=== PATIENT | female | born 1975 | race Caucasian/White ===

== ENCOUNTER 2018-07-11 08:15 | Outpatient (RCR) | payer OTHER, SELFPAY ==
--- NOTE | 2018-05-17 09:37 | PT.OIE ---
Current Diagnoses Pain in right knee (05/17/18) Low back pain (05/17/18) Abnormal posture (05/17/18) Weakness (05/17/18) Past Surgical History History of third molar tooth extraction Status post arthroscopy Status post arthroscopy Status post delivery Status post tonsillectomy and adenoidectomy Provider Visit Care Team Role Provider Type Bill White MD Attending Provider Physician Family Provider Primary Care Provider Specialty: Family Practice Address: [address] [place] [address], [facility] Email: [email or web address] Physical Therapy Initial Evaluation PT-OP-A Visit Information Start: 05/15/18 08:14 Freq: Status: Active Protocol: Document 05/15/18 08:15 SAK (Rec: 05/17/18 09:36 SAK [id number]) Out-Patient Physical Therapy Visit Information Visit Information Visit Type Initial Evaluation Visit Start Time 08:15 Visit Stop Time 09:00 Total Visit Minutes 45 Visit Number 1 Number of FIRST AID NURSE Visits 0 Evaluation Information Evaluation Date 05/15/18 PT-OP-B Current Condition Start: 05/15/18 08:14 Freq: Status: Active Protocol: Document 05/15/18 08:15 SAK (Rec: 05/17/18 09:36 SAK [id number]) Current Condition History of Current Condition Onset Date 3+ years Current Complaints function-limiting LBP, right knee pain History of Current Condition Patient reports worsening, persisten, function-limiting LBP melissa at 3-8/10. This is complicated by prior knee surgeries and frequent right knee pain which alters how she walks. Has had prior PT, not certain if it was helpful, not fully compliant with HEP. Does go to yoga and walk. Prior Treatments and Tests left ACL repair, left arthroscopy, right knee meniscectomy. Treatment Goals Patient/Caregiver Goals Reduce pain and be able to resume usual activities Prior Functional Status Baseline Function- ADL's Independent Baseline Function- Mobility Independent Baseline Function- Gait no limp, no assistive device Current Functional Impairments (Reported) Functional Limitations- ADL's Unable to take walks without pain, increased pain with ADL' s. Functional Limitations- Mobility/Gait antalgic Functional Limitations- Recreation/ unable to take long walks or Hobbies hike PT-OP-C Subjective Start: 05/15/18 08:14 Freq: Status: Active Protocol: Document 05/15/18 08:15 [facility] (Rec: 05/17/18 09:36 [facility] [id number]) Patient Questionnaires Oswestry Low Back Index Oswestry Impairment 1 to 19% Impaired (Score 1-19) OP-PT Pain Assessment Pain Assessment Grid Paper Pain Assessment Grid Completed Yes Location Right Knee Intensity 9 Scale Used Numeric (1 - 10) Description Acute Burning Pinching Pressure Spasm Tightness With Movement Bilateral Back Intensity 8 Scale Used Numeric (1 - 10) Description Aching Burning Pinching Spasm Tightness With Movement Frequency Frequent Pain Aggravating Factors ADL's Standing Walking Lifting Pain Alleviating Factors None PT-OP-F Manual Assessment Start: 05/15/18 08:14 Freq: Status: Active Protocol: Document 05/15/18 08:15 [facility] (Rec: 05/17/18 09:36 [facility] [id number]) Manual Assessments Other Manual Assessments Other Manual Assessments Palpable tightness right piriformis, bilateral lumbar paraspinals PT-OP-G Mobility & Gait Start: 05/15/18 08:14 Freq: Status: Active Protocol: Document 05/15/18 08:15 [facility] (Rec: 05/17/18 09:36 [facility] [id number]) OP Gait Assessment Gait Gait Assistance Required: Independent Assistive Devices Assistive Device None Gait Deviations General Gait Pattern Antalgic Factors Limiting Gait Function Factors Limiting Gait Function Decreased Strength Pain Stair Climbing Evaluation Evaluation Level of Assist On Stairs Independent Devices Stair Climbing Assistive Devices None Technique/Endurance Stair Climbing Direction Ascend and Descend Stair Climbing Technique Step Over Step PT-OP-J Posture/Palpation/Skin Start: 05/15/18 08:14 Freq: Status: Active Protocol: Document 05/15/18 08:15 [facility] (Rec: 05/17/18 09:36 [facility] [id number]) Posture Evaluation Position Standing Head/C-Spine Posture Forward Head T-Spine Posture Flattened L-Spine Posture Increased Lordosis Shifted Left Shoulder Posture (R) Rounded Arm Posture (L) Neutral (R) Neutral Pelvis Posture Anteriorly Tilted Hip Posture (R) Externally Rotated Knee Posture (R) Excess Flexion Foot Arch (L) High Arch (R) High Arch PT-OP-K Range of Motion Start: 05/15/18 08:14 Freq: Status: Active Protocol: Document 05/15/18 08:15 [facility] (Rec: 05/17/18 09:36 [facility] [id number]) Lumbar Spine Range of Motion Lumbar Spine Active Testing Position standing Flexion 10 Extension 30 Rotation Left 45 Rotation Right 45 Lateral Flexion Left 50 Lateral Flexion Right 40 Comments Lack of flexion in lumbar spine, mostly hip hinge and thoracic flexion Hip Goniometric Range of Motion Hip Measured in Degrees Right Testing Position Supine Flexion w/Knee Flexed 140 Straight Leg Raise 80 Extension 25 Abduction 45 Internal Rotation 30 External Rotation 75 Left Testing Position Supine Flexion w/Knee Flexed 140 Straight Leg Raise 85 Extension 10 Abduction 45 Internal Rotation 30 External Rotation 80 Hip ROM Limitations Hip ROM Limitations Pain Knee Goniometric Range of Motion Knee Measured in Degrees Left Knee ROM WFL Yes Right Knee ROM WFL Yes PT-OP-M Strength Start: 05/15/18 08:14 Freq: Status: Active Protocol: Document 05/15/18 08:15 [facility] (Rec: 05/17/18 09:36 [facility] [id number]) Hip Strength Hip Manual Muscle Testing Right Flexion (L2) 4- Good- Extension (S1) 4- Good- Abduction 4- Good- Adduction 4- Good- External Rotation 4- Good- Internal Rotation 4 Good Comments Poor core stabiization noted with testing Left Flexion (L2) 3+ Fair+ Extension (S1) 4- Good- Abduction 4- Good- Adduction 4- Good- External Rotation 4- Good- Internal Rotation 4 Good Comments Poor core stabiliztion noted with testing Knee Strength Knee Manual Muscle Testing Right Flexion (S2) 4 Good Extension (L3) 4 Good Reason Not Measured Pain Left Flexion (S2) 5 Normal Extension (L3) 5 Normal Ankle/Foot Strength Ankle and Foot Manual Muscle Testing Right Dorsiflexion (L4) 5 Normal Inversion 4 Good Left Dorsiflexion (L4) 5 Normal Plantarflexion (S1) 4 Good PT-OP-Q Treatments Start: 05/15/18 08:14 Freq: Status: Active Protocol: Document 05/15/18 08:15 [facility] (Rec: 05/17/18 09:36 [facility] [id number]) Self-Care/Home Management Treatment Education Patient Education Home Exercise Program Other Education Need for core stabilization with all activities, monitor positioning and usual movments for alignment and core stabiization. PT-OP-T Assessment and Plan Start: 05/15/18 08:14 Freq: Status: Active Protocol: Document 05/15/18 08:15 [facility] (Rec: 05/17/18 09:36 [facility] [id number]) Physical Therapy Assessment Impairments Impairments Activity Tolerance Gait Pain Posture ROM Strength Goals Four Impairment Posture Short Term Goal (STG) Patient to demonstrate good understanding of neutral posture and be able to perform postural correction with minimal cues statically and dynamically with function STG Duration 6 wks Granulizing Machine Operator Goal (LTG) Patient will demonstrate consistently neutral spinal alignment/posture without cues for improvement of pain and long-term function LTG Duration 3 months Three Impairment strength Short Term Goal (STG) Patient able to demonstrate consistent core stabilization with all activities including exercises and daily activities with minimal cues. Increase LE strength in areas showing deficits by 1/2 grade. STG Duration 6 wks Retirement Goal (LTG) Patient to demonstrate consistent appropriate core stabilization without cues, LE strength to improve to 5/5 LTG Duration 3 months Two Impairment ROM Retirement Goal (LTG) Improve lumbar spine mobility to WNL LTG Duration 3 months One Impairment Activity tolerance: Oswestry score 26% Short Term Goal (STG) Decrease Oswestry score to no greater than 13% STG Duration 6 wks Granulizing Machine Operator Goal (LTG) Decrease Oswestry score to no greater than 5% LTG Duration 3 months Assessment Summary Assessment Patient presents with function -limiting LBP, complicated by multiple knee surgeries and frequent right knee pain. She would benefit from PT for postural correction, core stabilization, strengthening, ROM. Physical Therapy Plan Frequency and Duration Frequency of Treatment 2x/Week Duration of Treatment 3 months Plan of Care Start Date 05/15/18 Plan of Care End Date 08/15/18 Therapeutic Interventions Therapeutic Interventions Aquatic Therapy Home Exercise Program Manual Therapy Neuromuscular Re-education Patient/Caregiver Education Self-Care/Home Management Therapeutic Activities Therapeutic Exercises Modalities Cold Pack/Ice Massage Electric Stimulation Hot Packs Ultrasound Next Visit Focus/Plan Next Note Type Treatment Note Next Visit Plan Progression of therapeutic exercises, postural education, core stabilization as tolerated.
--- NOTE | 2018-05-17 09:38 | PT.OPPOC ---
Current Diagnoses Pain in right knee (05/17/18) Low back pain (05/17/18) Abnormal posture (05/17/18) Weakness (05/17/18) Provider Visit Care Team Role Provider Type Bill White MD Attending Provider Physician Family Provider Primary Care Provider Specialty: Family Practice Address: [address] [place] [address], [id number] Email: [email or web address] Plan Of Care PT-OP-T Assessment and Plan Start: 05/15/18 08:14 Freq: Status: Active Protocol: Document 05/15/18 08:15 SAK (Rec: 05/17/18 09:36 SAK [id number]) Physical Therapy Assessment Impairments Impairments Activity Tolerance Gait Pain Posture ROM Strength Goals Four Impairment Posture Short Term Goal (STG) Patient to demonstrate good understanding of neutral posture and be able to perform postural correction with minimal cues statically and dynamically with function STG Duration 6 wks Roller Stitcher Goal (LTG) Patient will demonstrate consistently neutral spinal alignment/posture without cues for improvement of pain and long-term function LTG Duration 3 months Three Impairment strength Short Term Goal (STG) Patient able to demonstrate consistent core stabilization with all activities including exercises and daily activities with minimal cues. Increase LE strength in areas showing deficits by 1/2 grade. STG Duration 6 wks Roller Stitcher Goal (LTG) Patient to demonstrate consistent appropriate core stabilization without cues, LE strength to improve to 5/5 LTG Duration 3 months Two Impairment ROM Residential Goal (LTG) Improve lumbar spine mobility to WNL LTG Duration 3 months One Impairment Activity tolerance: Oswestry score 26% Short Term Goal (STG) Decrease Oswestry score to no greater than 13% STG Duration 6 wks Roller Stitcher Goal (LTG) Decrease Oswestry score to no greater than 5% LTG Duration 3 months Assessment Summary Assessment Patient presents with function -limiting LBP, complicated by multiple knee surgeries and frequent right knee pain. She would benefit from PT for postural correction, core stabilization, strengthening, ROM. Physical Therapy Plan Frequency and Duration Frequency of Treatment 2x/Week Duration of Treatment 3 months Plan of Care Start Date 05/15/18 Plan of Care End Date 08/15/18 Therapeutic Interventions Therapeutic Interventions Aquatic Therapy Home Exercise Program Manual Therapy Neuromuscular Re-education Patient/Caregiver Education Self-Care/Home Management Therapeutic Activities Therapeutic Exercises Modalities Cold Pack/Ice Massage Electric Stimulation Hot Packs Ultrasound Next Visit Focus/Plan Next Note Type Treatment Note Next Visit Plan Progression of therapeutic exercises, postural education, core stabilization as tolerated. Plan of Care Dates Plan of Care Start Date 05/15/18 Plan of Care End Date 08/15/18 Please Sign and Return: I have reviewed this Plan of Care and certify that the skilled therapy services above are required to meet the patient?s needs. Physician Signature Date Printed Name and Credentials Clinical Instructor Signature Printed Name and Credentials
--- NOTE | 2018-05-17 09:50 | PT.OTN ---
Current Diagnoses Pain in right knee (05/17/18) Low back pain (05/17/18) Abnormal posture (05/17/18) Weakness (05/17/18) Physical Therapy Treatment Note PT-OP-A Visit Information Start: 05/15/18 08:14 Freq: Status: Active Protocol: Document 05/17/18 08:15 SAK (Rec: 05/17/18 09:50 [facility] [id number]) Out-Patient Physical Therapy Visit Information Visit Information Visit Type Treatment Note Visit Start Time 08:15 Visit Stop Time 09:08 Total Visit Minutes 53 Visit Number 2 Number of CAR MOVER Visits 2 Evaluation Information Evaluation Date 05/15/18 PT-OP-B Current Condition Start: 05/15/18 08:14 Freq: Status: Active Protocol: Document 05/15/18 08:15 SAK (Rec: 05/17/18 09:36 [facility] [id number]) Current Condition History of Current Condition Onset Date 3+ years Current Complaints function-limiting LBP, right knee pain History of Current Condition Patient reports worsening, persisten, function-limiting LBP melissa at 3-06/14. This is complicated by prior knee surgeries and frequent right knee pain which alters how she walks. Has had prior PT, not certain if it was helpful, not fully compliant with HEP. Does go to yoga and walk. Prior Treatments and Tests left ACL repair, left arthroscopy, right knee meniscectomy. Treatment Goals Patient/Caregiver Goals Reduce pain and be able to resume usual activities Prior Functional Status Baseline Function- ADL's Independent Baseline Function- Mobility Independent Baseline Function- Gait no limp, no assistive device Current Functional Impairments (Reported) Functional Limitations- ADL's Unable to take walks without pain, increased pain with ADL' s. Functional Limitations- Mobility/Gait antalgic Functional Limitations- Recreation/ unable to take long walks or Hobbies hike PT-OP-C Subjective Start: 05/15/18 08:14 Freq: Status: Active Protocol: Document 05/17/18 08:15 SAK (Rec: 05/17/18 09:50 [facility] [id number]) OP-PT Subjective Patient Comments Patient Comments Reports was doing lunge in yoga yesterday and now having mod to severe right knee pain medially with cramping in inner thigh muscles, unable to fully straighten knee PT-OP-F Manual Assessment Start: 05/15/18 08:14 Freq: Status: Active Protocol: Document 05/15/18 08:15 SAK (Rec: 05/17/18 09:36 [facility] [id number]) Manual Assessments Other Manual Assessments Other Manual Assessments Palpable tightness right piriformis, bilateral lumbar paraspinals PT-OP-G Mobility & Gait Start: 05/15/18 08:14 Freq: Status: Active Protocol: Document 05/15/18 08:15 SAK (Rec: 05/17/18 09:36 [facility] [id number]) OP Gait Assessment Gait Gait Assistance Required: Independent Assistive Devices Assistive Device None Gait Deviations General Gait Pattern Antalgic Factors Limiting Gait Function Factors Limiting Gait Function Decreased Strength Pain Stair Climbing Evaluation Evaluation Level of Assist On Stairs Independent Devices Stair Climbing Assistive Devices None Technique/Endurance Stair Climbing Direction Ascend and Descend Stair Climbing Technique Step Over Step PT-OP-J Posture/Palpation/Skin Start: 05/15/18 08:14 Freq: Status: Active Protocol: Document 05/15/18 08:15 [facility] (Rec: 05/17/18 09:36 [facility] [id number]) Posture Evaluation Position Standing Head/C-Spine Posture Forward Head T-Spine Posture Flattened L-Spine Posture Increased Lordosis Shifted Left Shoulder Posture (R) Rounded Arm Posture (L) Neutral (R) Neutral Pelvis Posture Anteriorly Tilted Hip Posture (R) Externally Rotated Knee Posture (R) Excess Flexion Foot Arch (L) High Arch (R) High Arch PT-OP-K Range of Motion Start: 05/15/18 08:14 Freq: Status: Active Protocol: Document 05/15/18 08:15 [facility] (Rec: 05/17/18 09:36 [facility] [id number]) Lumbar Spine Range of Motion Lumbar Spine Active Testing Position standing Flexion 10 Extension 30 Rotation Left 45 Rotation Right 45 Lateral Flexion Left 50 Lateral Flexion Right 40 Comments Lack of flexion in lumbar spine, mostly hip hinge and thoracic flexion Hip Goniometric Range of Motion Hip Measured in Degrees Right Testing Position Supine Flexion w/Knee Flexed 140 Straight Leg Raise 80 Extension 25 Abduction 45 Internal Rotation 30 External Rotation 75 Left Testing Position Supine Flexion w/Knee Flexed 140 Straight Leg Raise 85 Extension 10 Abduction 45 Internal Rotation 30 External Rotation 80 Hip ROM Limitations Hip ROM Limitations Pain Knee Goniometric Range of Motion Knee Measured in Degrees Left Knee ROM WFL Yes Right Knee ROM WFL Yes PT-OP-M Strength Start: 05/15/18 08:14 Freq: Status: Active Protocol: Document 05/15/18 08:15 SAK (Rec: 05/17/18 09:36 [facility] [id number]) Hip Strength Hip Manual Muscle Testing Right Flexion (L2) 4- Good- Extension (S1) 4- Good- Abduction 4- Good- Adduction 4- Good- External Rotation 4- Good- Internal Rotation 4 Good Comments Poor core stabiization noted with testing Left Flexion (L2) 3+ Fair+ Extension (S1) 4- Good- Abduction 4- Good- Adduction 4- Good- External Rotation 4- Good- Internal Rotation 4 Good Comments Poor core stabiliztion noted with testing Knee Strength Knee Manual Muscle Testing Right Flexion (S2) 4 Good Extension (L3) 4 Good Reason Not Measured Pain Left Flexion (S2) 5 Normal Extension (L3) 5 Normal Ankle/Foot Strength Ankle and Foot Manual Muscle Testing Right Dorsiflexion (L4) 5 Normal Inversion 4 Good Left Dorsiflexion (L4) 5 Normal Plantarflexion (S1) 4 Good PT-OP-Q Treatments Start: 05/15/18 08:14 Freq: Status: Active Protocol: Document 05/17/18 08:15 SAK (Rec: 05/17/18 09:50 [facility] [id number]) Cardio Equipment Recumbent Stepper (Sci-Fit) Duration (Minutes) 7 Resistance 2 Other emphasis on neutral alignment, ex in pain-free ROM and intensity Gym Equipment Shuttle Balance 1 Details bal fwd/bck EO and EC, side to side EO and EC Reps/Duration 4 min Therapeutic Exercises Supine Exercises 3 Supine Exercise Name TA with pelvic tilt Reps/Minutes 10x 2 Supine Exercise Name TA with bent leg march Side bilateral Reps/Minutes 10x 1 Supine Exercise Name TA with hip roll outs Side bilateral Reps/Minutes 10x Sidelying Exercises 2 Sidelying Exercise Name clamshell 1 Sidelying Exercise Name TA with hip ab Side bilateral Reps/Minutes 10x Standing Exercises 2 Standing Exercise Name HC stretch Self-Care/Home Management Treatment Education Patient Education Home Exercise Program Other Education use of heat, ice PT-OP-R Modalities Start: 05/15/18 08:14 Freq: Status: Active Protocol: Document 05/17/18 08:15 SAK (Rec: 05/17/18 09:50 [facility] [id number]) Electric Stimulation Electric Stimulation Interferential Current (IFC) Body Location right knee Duration (Minutes) 15 Target/Sweep Sweep Patient Position Hooklying Combined With Heat/Cold Cold Pack Hot Pack/Cold Pack Treatment Hot Pack Location right adductor region Comments during ultrasound and e-stim to right knee Ultrasound Therapy Treatment Right Medial Knee Treatment Duration (minutes) 8 Patient Position Hooklying Mode Setting Continuous Intensity Setting (w/cm2) 1.2 PT-OP-T Assessment and Plan Start: 05/15/18 08:14 Freq: Status: Active Protocol: Document 05/17/18 08:15 SAK (Rec: 05/17/18 09:50 [facility] [id number]) Physical Therapy Assessment Impairments Impairments Activity Tolerance Gait Pain Posture ROM Strength Goals Four Impairment Posture Short Term Goal (STG) Patient to demonstrate good understanding of neutral posture and be able to perform postural correction with minimal cues statically and dynamically with function STG Duration 6 wks Grader Patrol Goal (LTG) Patient will demonstrate consistently neutral spinal alignment/posture without cues for improvement of pain and long-term function LTG Duration 3 months Three Impairment strength Short Term Goal (STG) Patient able to demonstrate consistent core stabilization with all activities including exercises and daily activities with minimal cues. Increase LE strength in areas showing deficits by 1/2 grade. STG Duration 6 wks Grader Patrol Goal (LTG) Patient to demonstrate consistent appropriate core stabilization without cues, LE strength to improve to 5/5 LTG Duration 3 months Two Impairment ROM Grader Patrol Goal (LTG) Improve lumbar spine mobility to WNL LTG Duration 3 months One Impairment Activity tolerance: Oswestry score 26% Short Term Goal (STG) Decrease Oswestry score to no greater than 13% STG Duration 6 wks Grader Patrol Goal (LTG) Decrease Oswestry score to no greater than 5% LTG Duration 3 months Assessment Summary Assessment Patient exacerbation of right knee pain with lunge at yoga altered treatment plan this date as the pain causes increased limp, increase in back pain as well. Needs moderate cues for core stabilization with ther ex. Demonstrated good understanding of appropriate use if ice and heat at home. Physical Therapy Plan Frequency and Duration Frequency of Treatment 2x/Week Duration of Treatment 3 months Plan of Care Start Date 05/15/18 Plan of Care End Date 08/15/18 Therapeutic Interventions Therapeutic Interventions Aquatic Therapy Home Exercise Program Manual Therapy Neuromuscular Re-education Patient/Caregiver Education Self-Care/Home Management Therapeutic Activities Therapeutic Exercises Modalities Cold Pack/Ice Massage Electric Stimulation Hot Packs Ultrasound Next Visit Focus/Plan Next Note Type Treatment Note Next Visit Plan Progression of therapeutic exercises, postural education, core stabilization as tolerated.
--- NOTE | 2018-05-21 09:32 | PT.OTN ---
Current Diagnoses Low back pain (05/21/18) Physical Therapy Treatment Note PT-OP-A Visit Information Start: 05/15/18 08:14 Freq: Status: Active Protocol: Document 05/21/18 07:30 AMB (Rec: 05/21/18 07:37 AMB [id number]) Out-Patient Physical Therapy Visit Information Visit Information Visit Type Treatment Note Visit Start Time 07:30 Visit Stop Time 08:15 Total Visit Minutes 53 Visit Number 2 Number of SPORTS THERAPIST Visits 0 Evaluation Information Evaluation Date 05/15/18 PT-OP-B Current Condition Start: 05/15/18 08:14 Freq: Status: Active Protocol: Document 05/15/18 08:15 SAK (Rec: 05/17/18 09:36 SAK [id number]) Current Condition History of Current Condition Onset Date 3+ years Current Complaints function-limiting LBP, right knee pain History of Current Condition Patient reports worsening, persisten, function-limiting LBP melissa at 3-8/10. This is complicated by prior knee surgeries and frequent right knee pain which alters how she walks. Has had prior PT, not certain if it was helpful, not fully compliant with HEP. Does go to yoga and walk. Prior Treatments and Tests left ACL repair, left arthroscopy, right knee meniscectomy. Treatment Goals Patient/Caregiver Goals Reduce pain and be able to resume usual activities Prior Functional Status Baseline Function- ADL's Independent Baseline Function- Mobility Independent Baseline Function- Gait no limp, no assistive device Current Functional Impairments (Reported) Functional Limitations- ADL's Unable to take walks without pain, increased pain with ADL' s. Functional Limitations- Mobility/Gait antalgic Functional Limitations- Recreation/ unable to take long walks or Hobbies hike PT-OP-C Subjective Start: 05/15/18 08:14 Freq: Status: Active Protocol: Document 05/21/18 07:30 AMB (Rec: 05/21/18 07:37 AMB [id number]) OP-PT Subjective Patient Comments Patient Comments R knee pain is much better today, stiff in the back in the mornings. PT-OP-F Manual Assessment Start: 05/15/18 08:14 Freq: Status: Active Protocol: Document 05/15/18 08:15 SAK (Rec: 05/17/18 09:36 SAK [id number]) Manual Assessments Other Manual Assessments Other Manual Assessments Palpable tightness right piriformis, bilateral lumbar paraspinals PT-OP-G Mobility & Gait Start: 05/15/18 08:14 Freq: Status: Active Protocol: Document 05/15/18 08:15 [facility] (Rec: 05/17/18 09:36 [facility] [id number]) OP Gait Assessment Gait Gait Assistance Required: Independent Assistive Devices Assistive Device None Gait Deviations General Gait Pattern Antalgic Factors Limiting Gait Function Factors Limiting Gait Function Decreased Strength Pain Stair Climbing Evaluation Evaluation Level of Assist On Stairs Independent Devices Stair Climbing Assistive Devices None Technique/Endurance Stair Climbing Direction Ascend and Descend Stair Climbing Technique Step Over Step PT-OP-J Posture/Palpation/Skin Start: 05/15/18 08:14 Freq: Status: Active Protocol: Document 05/15/18 08:15 [facility] (Rec: 05/17/18 09:36 [facility] [id number]) Posture Evaluation Position Standing Head/C-Spine Posture Forward Head T-Spine Posture Flattened L-Spine Posture Increased Lordosis Shifted Left Shoulder Posture (R) Rounded Arm Posture (L) Neutral (R) Neutral Pelvis Posture Anteriorly Tilted Hip Posture (R) Externally Rotated Knee Posture (R) Excess Flexion Foot Arch (L) High Arch (R) High Arch PT-OP-K Range of Motion Start: 05/15/18 08:14 Freq: Status: Active Protocol: Document 05/15/18 08:15 [facility] (Rec: 05/17/18 09:36 [facility] [id number]) Lumbar Spine Range of Motion Lumbar Spine Active Testing Position standing Flexion 10 Extension 30 Rotation Left 45 Rotation Right 45 Lateral Flexion Left 50 Lateral Flexion Right 40 Comments Lack of flexion in lumbar spine, mostly hip hinge and thoracic flexion Hip Goniometric Range of Motion Hip Measured in Degrees Right Testing Position Supine Flexion w/Knee Flexed 140 Straight Leg Raise 80 Extension 25 Abduction 45 Internal Rotation 30 External Rotation 75 Left Testing Position Supine Flexion w/Knee Flexed 140 Straight Leg Raise 85 Extension 10 Abduction 45 Internal Rotation 30 External Rotation 80 Hip ROM Limitations Hip ROM Limitations Pain Knee Goniometric Range of Motion Knee Measured in Degrees Left Knee ROM WFL Yes Right Knee ROM WFL Yes PT-OP-M Strength Start: 05/15/18 08:14 Freq: Status: Active Protocol: Document 05/15/18 08:15 [facility] (Rec: 05/17/18 09:36 SAK [id number]) Hip Strength Hip Manual Muscle Testing Right Flexion (L2) 4- Good- Extension (S1) 4- Good- Abduction 4- Good- Adduction 4- Good- External Rotation 4- Good- Internal Rotation 4 Good Comments Poor core stabiization noted with testing Left Flexion (L2) 3+ Fair+ Extension (S1) 4- Good- Abduction 4- Good- Adduction 4- Good- External Rotation 4- Good- Internal Rotation 4 Good Comments Poor core stabiliztion noted with testing Knee Strength Knee Manual Muscle Testing Right Flexion (S2) 4 Good Extension (L3) 4 Good Reason Not Measured Pain Left Flexion (S2) 5 Normal Extension (L3) 5 Normal Ankle/Foot Strength Ankle and Foot Manual Muscle Testing Right Dorsiflexion (L4) 5 Normal Inversion 4 Good Left Dorsiflexion (L4) 5 Normal Plantarflexion (S1) 4 Good PT-OP-Q Treatments Start: 05/15/18 08:14 Freq: Status: Active Protocol: Document 05/21/18 07:30 AMB (Rec: 05/21/18 08:18 AMB [id number]) Cardio Equipment Recumbent Elliptical ([employer]) Duration (Minutes) 5 Resistance 5 Therapeutic Exercises Supine Exercises 5 Supine Exercise Name TA bridge Reps/Minutes 10x 4 Supine Exercise Name piriformis stretch Reps/Minutes 30x2 3 Supine Exercise Name TA with pelvic tilt Reps/Minutes 10x 2 Supine Exercise Name TA with bent leg march Side bilateral Reps/Minutes 10x 1 Supine Exercise Name TA with hip roll outs Side bilateral Reps/Minutes 10x Sidelying Exercises 3 Sidelying Exercise Name kneeling side plank Comments with hip abd 1 Sidelying Exercise Name TA with hip ab Side bilateral Reps/Minutes 10x Standing Exercises 1 Standing Exercise Name resisted sidestepping Comments increased R knee pain Therapeutic Activity Therapeutic Activity 1 Name postural awareness Reps/Minutes 8 min Comments on shuttle balance Red- avoid hyperextension at knee, hyperextension at lumbar PT-OP-R Modalities Start: 05/15/18 08:14 Freq: Status: Active Protocol: Document 05/17/18 08:15 SAK (Rec: 05/17/18 09:50 SAK [id number]) Electric Stimulation Electric Stimulation Interferential Current (IFC) Body Location right knee Duration (Minutes) 15 Target/Sweep Sweep Patient Position Hooklying Combined With Heat/Cold Cold Pack Hot Pack/Cold Pack Treatment Hot Pack Location right adductor region Comments during ultrasound and e-stim to right knee Ultrasound Therapy Treatment Right Medial Knee Treatment Duration (minutes) 8 Patient Position Hooklying Mode Setting Continuous Intensity Setting (w/cm2) 1.2 PT-OP-T Assessment and Plan Start: 05/15/18 08:14 Freq: Status: Active Protocol: Document 05/21/18 07:30 AMB (Rec: 05/21/18 09:32 AMB [id number]) Physical Therapy Assessment Assessment Summary Assessment Pt is doing better today now that her R knee pain has calmed down. Continues to need verbal and physical cues for facilitation of TA and postural control. Physical Therapy Plan Next Visit Focus/Plan Next Note Type Treatment Note Next Visit Plan Progress core/hip stability
--- NOTE | 2018-05-24 17:20 | PT.OTN ---
Current Diagnoses Low back pain (05/24/18) Physical Therapy Treatment Note PT-OP-A Visit Information Start: 05/15/18 08:14 Freq: Status: Active Protocol: Document 05/24/18 07:30 AMB (Rec: 05/24/18 07:38 AMB [id number]) Out-Patient Physical Therapy Visit Information Visit Information Visit Type Treatment Note Visit Start Time 07:30 Visit Stop Time 08:15 Total Visit Minutes 53 Visit Number 4 Number of PROFESSOR OF ECONOMICS Visits 0 Evaluation Information Evaluation Date 05/15/18 PT-OP-B Current Condition Start: 05/15/18 08:14 Freq: Status: Active Protocol: Document 05/15/18 08:15 SAK (Rec: 05/17/18 09:36 SAK [id number]) Current Condition History of Current Condition Onset Date 3+ years Current Complaints function-limiting LBP, right knee pain History of Current Condition Patient reports worsening, persisten, function-limiting LBP melissa at 3-8/10. This is complicated by prior knee surgeries and frequent right knee pain which alters how she walks. Has had prior PT, not certain if it was helpful, not fully compliant with HEP. Does go to yoga and walk. Prior Treatments and Tests left ACL repair, left arthroscopy, right knee meniscectomy. Treatment Goals Patient/Caregiver Goals Reduce pain and be able to resume usual activities Prior Functional Status Baseline Function- ADL's Independent Baseline Function- Mobility Independent Baseline Function- Gait no limp, no assistive device Current Functional Impairments (Reported) Functional Limitations- ADL's Unable to take walks without pain, increased pain with ADL' s. Functional Limitations- Mobility/Gait antalgic Functional Limitations- Recreation/ unable to take long walks or Hobbies hike PT-OP-C Subjective Start: 05/15/18 08:14 Freq: Status: Active Protocol: Document 05/24/18 07:30 AMB (Rec: 05/24/18 07:38 AMB [id number]) OP-PT Subjective Patient Comments Patient Comments Stiff (difficulty with lumbar flexion) this morning. PT-OP-F Manual Assessment Start: 05/15/18 08:14 Freq: Status: Active Protocol: Document 05/15/18 08:15 SAK (Rec: 05/17/18 09:36 SAK [id number]) Manual Assessments Other Manual Assessments Other Manual Assessments Palpable tightness right piriformis, bilateral lumbar paraspinals PT-OP-G Mobility & Gait Start: 05/15/18 08:14 Freq: Status: Active Protocol: Document 05/15/18 08:15 SAK (Rec: 05/17/18 09:36 [facility] [id number]) OP Gait Assessment Gait Gait Assistance Required: Independent Assistive Devices Assistive Device None Gait Deviations General Gait Pattern Antalgic Factors Limiting Gait Function Factors Limiting Gait Function Decreased Strength Pain Stair Climbing Evaluation Evaluation Level of Assist On Stairs Independent Devices Stair Climbing Assistive Devices None Technique/Endurance Stair Climbing Direction Ascend and Descend Stair Climbing Technique Step Over Step PT-OP-J Posture/Palpation/Skin Start: 05/15/18 08:14 Freq: Status: Active Protocol: Document 05/15/18 08:15 SAK (Rec: 05/17/18 09:36 [facility] [id number]) Posture Evaluation Position Standing Head/C-Spine Posture Forward Head T-Spine Posture Flattened L-Spine Posture Increased Lordosis Shifted Left Shoulder Posture (R) Rounded Arm Posture (L) Neutral (R) Neutral Pelvis Posture Anteriorly Tilted Hip Posture (R) Externally Rotated Knee Posture (R) Excess Flexion Foot Arch (L) High Arch (R) High Arch PT-OP-K Range of Motion Start: 05/15/18 08:14 Freq: Status: Active Protocol: Document 05/15/18 08:15 [facility] (Rec: 05/17/18 09:36 [facility] [id number]) Lumbar Spine Range of Motion Lumbar Spine Active Testing Position standing Flexion 10 Extension 30 Rotation Left 45 Rotation Right 45 Lateral Flexion Left 50 Lateral Flexion Right 40 Comments Lack of flexion in lumbar spine, mostly hip hinge and thoracic flexion Hip Goniometric Range of Motion Hip Measured in Degrees Right Testing Position Supine Flexion w/Knee Flexed 140 Straight Leg Raise 80 Extension 25 Abduction 45 Internal Rotation 30 External Rotation 75 Left Testing Position Supine Flexion w/Knee Flexed 140 Straight Leg Raise 85 Extension 10 Abduction 45 Internal Rotation 30 External Rotation 80 Hip ROM Limitations Hip ROM Limitations Pain Knee Goniometric Range of Motion Knee Measured in Degrees Left Knee ROM WFL Yes Right Knee ROM WFL Yes PT-OP-M Strength Start: 05/15/18 08:14 Freq: Status: Active Protocol: Document 05/15/18 08:15 SAK (Rec: 05/17/18 09:36 [facility] [id number]) Hip Strength Hip Manual Muscle Testing Right Flexion (L2) 4- Good- Extension (S1) 4- Good- Abduction 4- Good- Adduction 4- Good- External Rotation 4- Good- Internal Rotation 4 Good Comments Poor core stabiization noted with testing Left Flexion (L2) 3+ Fair+ Extension (S1) 4- Good- Abduction 4- Good- Adduction 4- Good- External Rotation 4- Good- Internal Rotation 4 Good Comments Poor core stabiliztion noted with testing Knee Strength Knee Manual Muscle Testing Right Flexion (S2) 4 Good Extension (L3) 4 Good Reason Not Measured Pain Left Flexion (S2) 5 Normal Extension (L3) 5 Normal Ankle/Foot Strength Ankle and Foot Manual Muscle Testing Right Dorsiflexion (L4) 5 Normal Inversion 4 Good Left Dorsiflexion (L4) 5 Normal Plantarflexion (S1) 4 Good PT-OP-Q Treatments Start: 05/15/18 08:14 Freq: Status: Active Protocol: Document 05/24/18 07:30 AMB (Rec: 05/24/18 17:19 AMB [id number]) Cardio Equipment Recumbent Elliptical ([employer]) Duration (Minutes) 5 Resistance 5 Therapeutic Exercises Supine Exercises 4 Supine Exercise Name piriformis stretch Reps/Minutes 30x2 3 Supine Exercise Name TA with pelvic tilt Reps/Minutes 10x 2 Supine Exercise Name TA with bent leg march Side bilateral Reps/Minutes 10x Prone Exercises 1 Prone Exercise Name olga lidia pose with SB Reps/Minutes 30x4 Sidelying Exercises 3 Sidelying Exercise Name kneeling side plank Comments with hip abd 2 Sidelying Exercise Name clamshell Reps/Minutes 10 Manual Therapy Treatment Soft Tissue Mobilization 1 Body Location R QL into glut med Body Position Sidelying Comments with QL stretch PT-OP-R Modalities Start: 05/15/18 08:14 Freq: Status: Active Protocol: Document 05/17/18 08:15 SAK (Rec: 05/17/18 09:50 SAK [id number]) Electric Stimulation Electric Stimulation Interferential Current (IFC) Body Location right knee Duration (Minutes) 15 Target/Sweep Sweep Patient Position Hooklying Combined With Heat/Cold Cold Pack Hot Pack/Cold Pack Treatment Hot Pack Location right adductor region Comments during ultrasound and e-stim to right knee Ultrasound Therapy Treatment Right Medial Knee Treatment Duration (minutes) 8 Patient Position Hooklying Mode Setting Continuous Intensity Setting (w/cm2) 1.2 PT-OP-T Assessment and Plan Start: 05/15/18 08:14 Freq: Status: Active Protocol: Document 05/24/18 07:30 AMB (Rec: 05/24/18 17:19 AMB [id number]) Physical Therapy Assessment Goals Four Impairment Posture Short Term Goal (STG) Patient to demonstrate good understanding of neutral posture and be able to perform postural correction with minimal cues statically and dynamically with function STG Duration 6 wks Mcfp Goal (LTG) Patient will demonstrate consistently neutral spinal alignment/posture without cues for improvement of pain and long-term function LTG Duration 3 months Three Impairment strength Short Term Goal (STG) Patient able to demonstrate consistent core stabilization with all activities including exercises and daily activities with minimal cues. Increase LE strength in areas showing deficits by 1/2 grade. STG Duration 6 wks Mill Tender Goal (LTG) Patient to demonstrate consistent appropriate core stabilization without cues, LE strength to improve to 5/5 LTG Duration 3 months Two Impairment ROM Mill Tender Goal (LTG) Improve lumbar spine mobility to WNL LTG Duration 3 months One Impairment Activity tolerance: Oswestry score 26% Short Term Goal (STG) Decrease Oswestry score to no greater than 13% STG Duration 6 wks Mcfp Goal (LTG) Decrease Oswestry score to no greater than 5% LTG Duration 3 months Assessment Summary Assessment Began discussion of sleep positioning as stiffness is worst in the morning. Physical Therapy Plan Frequency and Duration Frequency of Treatment 2x/Week Duration of Treatment 3 months Plan of Care Start Date 05/15/18 Plan of Care End Date 08/15/18 Next Visit Focus/Plan Next Note Type Treatment Note Next Visit Plan Progress core stability as tolerated with functional movement, progress postural awareness
--- NOTE | 2018-05-31 14:21 | PT.OTN ---
Current Diagnoses Low back pain (05/31/18) Physical Therapy Treatment Note PT-OP-A Visit Information Start: 05/15/18 08:14 Freq: Status: Active Protocol: Document 05/29/18 08:14 [facility] (Rec: 05/29/18 09:05 [facility] [id number]) Out-Patient Physical Therapy Visit Information Visit Information Visit Type Treatment Note Visit Start Time 08:14 Number of [employer] Visits 0 PT-OP-B Current Condition Start: 05/15/18 08:14 Freq: Status: Active Protocol: Document 05/15/18 08:15 [facility] (Rec: 05/17/18 09:36 [facility] [id number]) Current Condition History of Current Condition Onset Date 3+ years Current Complaints function-limiting LBP, right knee pain History of Current Condition Patient reports worsening, persisten, function-limiting LBP melissa at 3-06/14. This is complicated by prior knee surgeries and frequent right knee pain which alters how she walks. Has had prior PT, not certain if it was helpful, not fully compliant with HEP. Does go to yoga and walk. Prior Treatments and Tests left ACL repair, left arthroscopy, right knee meniscectomy. Treatment Goals Patient/Caregiver Goals Reduce pain and be able to resume usual activities Prior Functional Status Baseline Function- ADL's Independent Baseline Function- Mobility Independent Baseline Function- Gait no limp, no assistive device Current Functional Impairments (Reported) Functional Limitations- ADL's Unable to take walks without pain, increased pain with ADL' s. Functional Limitations- Mobility/Gait antalgic Functional Limitations- Recreation/ unable to take long walks or Hobbies hike PT-OP-C Subjective Start: 05/15/18 08:14 Freq: Status: Active Protocol: Document 05/29/18 08:14 [facility] (Rec: 05/29/18 09:05 [facility] [id number]) OP-PT Subjective Patient Comments Patient Comments A little better. Reports compliance to HEP. Still worst in am, but not quite as bad. PT-OP-F Manual Assessment Start: 05/15/18 08:14 Freq: Status: Active Protocol: Document 05/15/18 08:15 [facility] (Rec: 05/17/18 09:36 [facility] [id number]) Manual Assessments Other Manual Assessments Other Manual Assessments Palpable tightness right piriformis, bilateral lumbar paraspinals PT-OP-G Mobility & Gait Start: 07/11/18 08:14 Freq: Status: Active Protocol: Document 05/15/18 08:15 [facility] (Rec: 05/17/18 09:36 [facility] [id number]) OP Gait Assessment Gait Gait Assistance Required: Independent Assistive Devices Assistive Device None Gait Deviations General Gait Pattern Antalgic Factors Limiting Gait Function Factors Limiting Gait Function Decreased Strength Pain Stair Climbing Evaluation Evaluation Level of Assist On Stairs Independent Devices Stair Climbing Assistive Devices None Technique/Endurance Stair Climbing Direction Ascend and Descend Stair Climbing Technique Step Over Step PT-OP-J Posture/Palpation/Skin Start: 05/15/18 08:14 Freq: Status: Active Protocol: Document 05/15/18 08:15 [facility] (Rec: 05/17/18 09:36 [facility] [id number]) Posture Evaluation Position Standing Head/C-Spine Posture Forward Head T-Spine Posture Flattened L-Spine Posture Increased Lordosis Shifted Left Shoulder Posture (R) Rounded Arm Posture (L) Neutral (R) Neutral Pelvis Posture Anteriorly Tilted Hip Posture (R) Externally Rotated Knee Posture (R) Excess Flexion Foot Arch (L) High Arch (R) High Arch PT-OP-K Range of Motion Start: 05/15/18 08:14 Freq: Status: Active Protocol: Document 05/15/18 08:15 [facility] (Rec: 05/17/18 09:36 [facility] [id number]) Lumbar Spine Range of Motion Lumbar Spine Active Testing Position standing Flexion 10 Extension 30 Rotation Left 45 Rotation Right 45 Lateral Flexion Left 50 Lateral Flexion Right 40 Comments Lack of flexion in lumbar spine, mostly hip hinge and thoracic flexion Hip Goniometric Range of Motion Hip Measured in Degrees Right Testing Position Supine Flexion w/Knee Flexed 140 Straight Leg Raise 80 Extension 25 Abduction 45 Internal Rotation 30 External Rotation 75 Left Testing Position Supine Flexion w/Knee Flexed 140 Straight Leg Raise 85 Extension 10 Abduction 45 Internal Rotation 30 External Rotation 80 Hip ROM Limitations Hip ROM Limitations Pain Knee Goniometric Range of Motion Knee Measured in Degrees Left Knee ROM WFL Yes Right Knee ROM WFL Yes PT-OP-M Strength Start: 05/15/18 08:14 Freq: Status: Active Protocol: Document 05/15/18 08:15 [facility] (Rec: 05/17/18 09:36 [facility] [id number]) Hip Strength Hip Manual Muscle Testing Right Flexion (L2) 4- Good- Extension (S1) 4- Good- Abduction 4- Good- Adduction 4- Good- External Rotation 4- Good- Internal Rotation 4 Good Comments Poor core stabiization noted with testing Left Flexion (L2) 3+ Fair+ Extension (S1) 4- Good- Abduction 4- Good- Adduction 4- Good- External Rotation 4- Good- Internal Rotation 4 Good Comments Poor core stabiliztion noted with testing Knee Strength Knee Manual Muscle Testing Right Flexion (S2) 4 Good Extension (L3) 4 Good Reason Not Measured Pain Left Flexion (S2) 5 Normal Extension (L3) 5 Normal Ankle/Foot Strength Ankle and Foot Manual Muscle Testing Right Dorsiflexion (L4) 5 Normal Inversion 4 Good Left Dorsiflexion (L4) 5 Normal Plantarflexion (S1) 4 Good PT-OP-Q Treatments Start: 05/15/18 08:14 Freq: Status: Active Protocol: Document 05/29/18 08:14 [facility] (Rec: 05/29/18 09:05 [facility] [id number]) Cardio Equipment Recumbent Stepper (Sci-Fit) Duration (Minutes) 5 Resistance 2.5 Other emphasis on neutral alignment, ex in pain-free ROM and intensity Gym Equipment Shuttle Recovery Unilateral Squats Resistance 37 Shuttle Recovery Platform Stable Reps/Time 10 Bilateral Squats Resistance 75 Shuttle Recovery Platform Stable Reps/Time 10 Shuttle Balance 1 Details bal fwd/bck EO and EC, side to side EO and EC Reps/Duration 5 min Comments added stride balance; all with alignment and core emphasis Therapeutic Exercises Supine Exercises 7 Supine Exercise Name isometric push, pull Equipment Used 65 cm ball 6 Supine Exercise Name bridge, hamstring curl, LTR Equipment Used 65 cm ball 4 Supine Exercise Name piriformis stretch Reps/Minutes 30x2 Sidelying Exercises 3 Sidelying Exercise Name kneeling side plank Comments with hip abd Standing Exercises 4 Standing Exercise Name chair squats Reps/Minutes 10x Comments emphasis on spinal alignment, gluteal activation 3 Standing Exercise Name Monster walks sideways Resistance yellow theraband Comments emphasis on alignment Manual Therapy Treatment Soft Tissue Mobilization 1 Body Location R QL into glut med Body Position Sidelying Comments with QL stretch PT-OP-R Modalities Start: 05/15/18 08:14 Freq: Status: Active Protocol: Document 05/29/18 08:14 [facility] (Rec: 05/31/18 14:21 [facility] [id number]) Electric Stimulation Electric Stimulation Interferential Current (IFC) Body Location melissa lumbar spine Duration (Minutes) 15 Intensity 13 Target/Sweep Sweep Patient Position Hooklying Combined With Heat/Cold Hot Pack Hot Pack/Cold Pack Treatment Hot Pack Location right adductor region Comments during ultrasound and e-stim to right knee PT-OP-T Assessment and Plan Start: 05/15/18 08:14 Freq: Status: Active Protocol: Document 05/29/18 08:14 [facility] (Rec: 05/31/18 14:21 [facility] [id number]) Physical Therapy Assessment Assessment Summary Assessment Good tolerance for progression of ther ex, requires moderate verbal and manual cues for alignment and core activation. Physical Therapy Plan Frequency and Duration Frequency of Treatment 2x/Week Duration of Treatment 3 months Plan of Care Start Date 05/15/18 Plan of Care End Date 08/15/18 Therapeutic Interventions Therapeutic Interventions Aquatic Therapy Home Exercise Program Manual Therapy Neuromuscular Re-education Patient/Caregiver Education Self-Care/Home Management Therapeutic Activities Therapeutic Exercises Modalities Cold Pack/Ice Massage Electric Stimulation Hot Packs Ultrasound Next Visit Focus/Plan Next Note Type Treatment Note Next Visit Plan Progress core stability as tolerated with functional movement, progress postural awareness especially with functional tasks.
--- NOTE | 2018-05-31 14:32 | PT.OTN ---
Current Diagnoses Low back pain (05/31/18) Physical Therapy Treatment Note PT-OP-A Visit Information Start: 05/15/18 08:14 Freq: Status: Active Protocol: Document 05/31/18 08:15 [facility] (Rec: 05/31/18 14:32 [facility] [id number]) Out-Patient Physical Therapy Visit Information Visit Information Visit Type Treatment Note Visit Start Time 08:15 Visit Stop Time 09:15 Total Visit Minutes 60 Visit Number 6 Number of [employer] Visits 0 PT-OP-B Current Condition Start: 05/15/18 08:14 Freq: Status: Active Protocol: Document 05/15/18 08:15 [facility] (Rec: 05/17/18 09:36 [facility] [id number]) Current Condition History of Current Condition Onset Date 3+ years Current Complaints function-limiting LBP, right knee pain History of Current Condition Patient reports worsening, persisten, function-limiting LBP melissa at 3-810. This is complicated by prior knee surgeries and frequent right knee pain which alters how she walks. Has had prior PT, not certain if it was helpful, not fully compliant with HEP. Does go to yoga and walk. Prior Treatments and Tests left ACL repair, left arthroscopy, right knee meniscectomy. Treatment Goals Patient/Caregiver Goals Reduce pain and be able to resume usual activities Prior Functional Status Baseline Function- ADL's Independent Baseline Function- Mobility Independent Baseline Function- Gait no limp, no assistive device Current Functional Impairments (Reported) Functional Limitations- ADL's Unable to take walks without pain, increased pain with ADL' s. Functional Limitations- Mobility/Gait antalgic Functional Limitations- Recreation/ unable to take long walks or Hobbies hike PT-OP-C Subjective Start: 05/15/18 08:14 Freq: Status: Active Protocol: Document 05/31/18 08:15 [facility] (Rec: 05/31/18 14:32 [facility] [id number]) OP-PT Subjective Patient Comments Patient Reported Progress Improving PT-OP-F Manual Assessment Start: 05/15/18 08:14 Freq: Status: Active Protocol: Document 05/15/18 08:15 [facility] (Rec: 05/17/18 09:36 [facility] [id number]) Manual Assessments Other Manual Assessments Other Manual Assessments Palpable tightness right piriformis, bilateral lumbar paraspinals PT-OP-G Mobility & Gait Start: 05/15/18 08:14 Freq: Status: Active Protocol: Document 05/15/18 08:15 [facility] (Rec: 05/17/18 09:36 [facility] [id number]) OP Gait Assessment Gait Gait Assistance Required: Independent Assistive Devices Assistive Device None Gait Deviations General Gait Pattern Antalgic Factors Limiting Gait Function Factors Limiting Gait Function Decreased Strength Pain Stair Climbing Evaluation Evaluation Level of Assist On Stairs Independent Devices Stair Climbing Assistive Devices None Technique/Endurance Stair Climbing Direction Ascend and Descend Stair Climbing Technique Step Over Step PT-OP-J Posture/Palpation/Skin Start: 05/15/18 08:14 Freq: Status: Active Protocol: Document 05/15/18 08:15 [facility] (Rec: 05/17/18 09:36 [facility] [id number]) Posture Evaluation Position Standing Head/C-Spine Posture Forward Head T-Spine Posture Flattened L-Spine Posture Increased Lordosis Shifted Left Shoulder Posture (R) Rounded Arm Posture (L) Neutral (R) Neutral Pelvis Posture Anteriorly Tilted Hip Posture (R) Externally Rotated Knee Posture (R) Excess Flexion Foot Arch (L) High Arch (R) High Arch PT-OP-K Range of Motion Start: 05/15/18 08:14 Freq: Status: Active Protocol: Document 05/15/18 08:15 [facility] (Rec: 05/17/18 09:36 [facility] [id number]) Lumbar Spine Range of Motion Lumbar Spine Active Testing Position standing Flexion 10 Extension 30 Rotation Left 45 Rotation Right 45 Lateral Flexion Left 50 Lateral Flexion Right 40 Comments Lack of flexion in lumbar spine, mostly hip hinge and thoracic flexion Hip Goniometric Range of Motion Hip Measured in Degrees Right Testing Position Supine Flexion w/Knee Flexed 140 Straight Leg Raise 80 Extension 25 Abduction 45 Internal Rotation 30 External Rotation 75 Left Testing Position Supine Flexion w/Knee Flexed 140 Straight Leg Raise 85 Extension 10 Abduction 45 Internal Rotation 30 External Rotation 80 Hip ROM Limitations Hip ROM Limitations Pain Knee Goniometric Range of Motion Knee Measured in Degrees Left Knee ROM WFL Yes Right Knee ROM WFL Yes PT-OP-M Strength Start: 05/15/18 08:14 Freq: Status: Active Protocol: Document 05/15/18 08:15 [facility] (Rec: 05/17/18 09:36 [facility] [id number]) Hip Strength Hip Manual Muscle Testing Right Flexion (L2) 4- Good- Extension (S1) 4- Good- Abduction 4- Good- Adduction 4- Good- External Rotation 4- Good- Internal Rotation 4 Good Comments Poor core stabiization noted with testing Left Flexion (L2) 3+ Fair+ Extension (S1) 4- Good- Abduction 4- Good- Adduction 4- Good- External Rotation 4- Good- Internal Rotation 4 Good Comments Poor core stabiliztion noted with testing Knee Strength Knee Manual Muscle Testing Right Flexion (S2) 4 Good Extension (L3) 4 Good Reason Not Measured Pain Left Flexion (S2) 5 Normal Extension (L3) 5 Normal Ankle/Foot Strength Ankle and Foot Manual Muscle Testing Right Dorsiflexion (L4) 5 Normal Inversion 4 Good Left Dorsiflexion (L4) 5 Normal Plantarflexion (S1) 4 Good PT-OP-Q Treatments Start: 05/15/18 08:14 Freq: Status: Active Protocol: Document 05/31/18 08:15 [facility] (Rec: 05/31/18 14:32 [facility] [id number]) Cardio Equipment Recumbent Stepper (Sci-Fit) Duration (Minutes) 5 Resistance 2.5 Other emphasis on neutral alignment, ex in pain-free ROM and intensity Gym Equipment Shuttle Recovery Unilateral Squats Resistance 50 Shuttle Recovery Platform Unstable Reps/Time 10 Bilateral Squats Resistance 75 Shuttle Recovery Platform Unstable Reps/Time 10 Shuttle Balance 1 Details bal fwd/bck EO and EC, side to side EO and EC Reps/Duration 5 min Comments added stride balance; all with alignment and core emphasis Therapeutic Exercises Supine Exercises 7 Supine Exercise Name isometric push, pull Equipment Used 65 cm ball 6 Supine Exercise Name bridge, hamstring curl, LTR Equipment Used 65 cm ball 4 Supine Exercise Name piriformis stretch Reps/Minutes 30x2 Standing Exercises 6 Standing Exercise Name rows, sh ext with theraband Reps/Minutes 10x 5 Standing Exercise Name BOSU lunges Reps/Minutes 10x 3 Standing Exercise Name Monster walks sideways, forward, back Resistance yellow theraband Reps/Minutes 10 ft x 2 each motion Comments emphasis on alignment Manual Therapy Treatment Taping 1 Body Location left knee Treatment Focus pain managment Type of Tape Kinesio Tape Comments 2 Y strips PT-OP-R Modalities Start: 05/15/18 08:14 Freq: Status: Active Protocol: Document 05/31/18 08:15 [facility] (Rec: 05/31/18 14:32 [facility] [id number]) Electric Stimulation Electric Stimulation Interferential Current (IFC) Body Location melissa lumbar spine Duration (Minutes) 15 Intensity 13 Target/Sweep Sweep Patient Position Hooklying Combined With Heat/Cold Hot Pack PT-OP-T Assessment and Plan Start: 05/15/18 08:14 Freq: Status: Active Protocol: Document 05/31/18 08:15 [facility] (Rec: 05/31/18 14:32 [facility] [id number]) Physical Therapy Assessment Impairments Impairments Activity Tolerance Gait Pain Posture ROM Strength Assessment Summary Assessment Continues to progress with ther ex with improving postural alignment and core stab awareness. Physical Therapy Plan Frequency and Duration Frequency of Treatment 2x/Week Duration of Treatment 3 months Plan of Care Start Date 05/15/18 Plan of Care End Date 08/15/18 Therapeutic Interventions Therapeutic Interventions Aquatic Therapy Home Exercise Program Manual Therapy Neuromuscular Re-education Patient/Caregiver Education Self-Care/Home Management Therapeutic Activities Therapeutic Exercises Modalities Cold Pack/Ice Massage Electric Stimulation Hot Packs Ultrasound Next Visit Focus/Plan Next Note Type Treatment Note Next Visit Plan Continue PT for core stabilization, strengthening, patient education, pain management.
--- NOTE | 2018-06-04 12:05 | PT.OTN ---
Current Diagnoses Low back pain (06/04/18) Physical Therapy Treatment Note PT-OP-A Visit Information Start: 05/15/18 08:14 Freq: Status: Active Protocol: Document 06/04/18 08:13 [facility] (Rec: 06/04/18 08:59 [facility] [id number]) Out-Patient Physical Therapy Visit Information Visit Information Visit Type Treatment Note Visit Start Time 08:15 Visit Stop Time 09:15 Total Visit Minutes 60 Visit Number 7 Number of SUPERVISOR FURNACE ROOM Visits 0 PT-OP-B Current Condition Start: 05/15/18 08:14 Freq: Status: Active Protocol: Document 05/15/18 08:15 [facility] (Rec: 05/17/18 09:36 [facility] [id number]) Current Condition History of Current Condition Onset Date 3+ years Current Complaints function-limiting LBP, right knee pain History of Current Condition Patient reports worsening, persisten, function-limiting LBP melissa at 3-810. This is complicated by prior knee surgeries and frequent right knee pain which alters how she walks. Has had prior PT, not certain if it was helpful, not fully compliant with HEP. Does go to yoga and walk. Prior Treatments and Tests left ACL repair, left arthroscopy, right knee meniscectomy. Treatment Goals Patient/Caregiver Goals Reduce pain and be able to resume usual activities Prior Functional Status Baseline Function- ADL's Independent Baseline Function- Mobility Independent Baseline Function- Gait no limp, no assistive device Current Functional Impairments (Reported) Functional Limitations- ADL's Unable to take walks without pain, increased pain with ADL' s. Functional Limitations- Mobility/Gait antalgic Functional Limitations- Recreation/ unable to take long walks or Hobbies hike PT-OP-C Subjective Start: 05/15/18 08:14 Freq: Status: Active Protocol: Document 06/04/18 08:13 [facility] (Rec: 06/04/18 08:59 [facility] [id number]) OP-PT Subjective Patient Comments Patient Comments Liked kinesiotape for knee. LBP some better. Patient Reported Progress Improving PT-OP-F Manual Assessment Start: 05/15/18 08:14 Freq: Status: Active Protocol: Document 05/15/18 08:15 [facility] (Rec: 05/17/18 09:36 [facility] [id number]) Manual Assessments Other Manual Assessments Other Manual Assessments Palpable tightness right piriformis, bilateral lumbar paraspinals PT-OP-G Mobility & Gait Start: 05/15/18 08:14 Freq: Status: Active Protocol: Document 05/15/18 08:15 [facility] (Rec: 05/17/18 09:36 [facility] [id number]) OP Gait Assessment Gait Gait Assistance Required: Independent Assistive Devices Assistive Device None Gait Deviations General Gait Pattern Antalgic Factors Limiting Gait Function Factors Limiting Gait Function Decreased Strength Pain Stair Climbing Evaluation Evaluation Level of Assist On Stairs Independent Devices Stair Climbing Assistive Devices None Technique/Endurance Stair Climbing Direction Ascend and Descend Stair Climbing Technique Step Over Step PT-OP-J Posture/Palpation/Skin Start: 05/15/18 08:14 Freq: Status: Active Protocol: Document 05/15/18 08:15 [facility] (Rec: 05/17/18 09:36 [facility] [id number]) Posture Evaluation Position Standing Head/C-Spine Posture Forward Head T-Spine Posture Flattened L-Spine Posture Increased Lordosis Shifted Left Shoulder Posture (R) Rounded Arm Posture (L) Neutral (R) Neutral Pelvis Posture Anteriorly Tilted Hip Posture (R) Externally Rotated Knee Posture (R) Excess Flexion Foot Arch (L) High Arch (R) High Arch PT-OP-K Range of Motion Start: 05/15/18 08:14 Freq: Status: Active Protocol: Document 05/15/18 08:15 [facility] (Rec: 05/17/18 09:36 [facility] [id number]) Lumbar Spine Range of Motion Lumbar Spine Active Testing Position standing Flexion 10 Extension 30 Rotation Left 45 Rotation Right 45 Lateral Flexion Left 50 Lateral Flexion Right 40 Comments Lack of flexion in lumbar spine, mostly hip hinge and thoracic flexion Hip Goniometric Range of Motion Hip Measured in Degrees Right Testing Position Supine Flexion w/Knee Flexed 140 Straight Leg Raise 80 Extension 25 Abduction 45 Internal Rotation 30 External Rotation 75 Left Testing Position Supine Flexion w/Knee Flexed 140 Straight Leg Raise 85 Extension 10 Abduction 45 Internal Rotation 30 External Rotation 80 Hip ROM Limitations Hip ROM Limitations Pain Knee Goniometric Range of Motion Knee Measured in Degrees Left Knee ROM WFL Yes Right Knee ROM WFL Yes PT-OP-M Strength Start: 05/15/18 08:14 Freq: Status: Active Protocol: Document 05/15/18 08:15 [facility] (Rec: 05/17/18 09:36 [facility] [id number]) Hip Strength Hip Manual Muscle Testing Right Flexion (L2) 4- Good- Extension (S1) 4- Good- Abduction 4- Good- Adduction 4- Good- External Rotation 4- Good- Internal Rotation 4 Good Comments Poor core stabiization noted with testing Left Flexion (L2) 3+ Fair+ Extension (S1) 4- Good- Abduction 4- Good- Adduction 4- Good- External Rotation 4- Good- Internal Rotation 4 Good Comments Poor core stabiliztion noted with testing Knee Strength Knee Manual Muscle Testing Right Flexion (S2) 4 Good Extension (L3) 4 Good Reason Not Measured Pain Left Flexion (S2) 5 Normal Extension (L3) 5 Normal Ankle/Foot Strength Ankle and Foot Manual Muscle Testing Right Dorsiflexion (L4) 5 Normal Inversion 4 Good Left Dorsiflexion (L4) 5 Normal Plantarflexion (S1) 4 Good PT-OP-Q Treatments Start: 05/15/18 08:14 Freq: Status: Active Protocol: Document 06/04/18 08:13 [facility] (Rec: 06/04/18 08:59 [facility] [id number]) Cardio Equipment Recumbent Stepper (Sci-Fit) Duration (Minutes) 5 Resistance 2.5 Other emphasis on neutral alignment, ex in pain-free ROM and intensity Gym Equipment Shuttle Recovery Unilateral Squats Resistance 50 Shuttle Recovery Platform Unstable Reps/Time 10 Bilateral Squats Resistance 75 Shuttle Recovery Platform Unstable Reps/Time 10 Shuttle Balance 1 Details bal fwd/bck EO and EC, side to side EO and EC Reps/Duration 5 min Comments added narrower base and stride balance; all with alignment and core emphasis Sport Cord 1 Exercise Details forward endrange weight-shift Cord/Resistance green Comments gluteal activation Therapeutic Exercises Supine Exercises 6 Supine Exercise Name bridge, hamstring curl, LTR Equipment Used 65 cm ball 5 Supine Exercise Name bridge with single leg lift Comments attempted, better but still too difficult 4 Supine Exercise Name piriformis stretch Reps/Minutes 30x2 Standing Exercises 5 Standing Exercise Name BOSU lunges Reps/Minutes 10x 3 Standing Exercise Name Monster walks sideways, forward, back Resistance red Reps/Minutes 10 ft x 2 each motion Comments emphasis on alignment Manual Therapy Treatment Taping 1 Body Location melissa knees Treatment Focus pain managment Type of Tape Kinesio Tape Comments 2 Y strips each knee PT-OP-R Modalities Start: 05/15/18 08:14 Freq: Status: Active Protocol: Document 06/04/18 08:13 [facility] (Rec: 06/04/18 12:05 [facility] [id number]) Electric Stimulation Electric Stimulation Interferential Current (IFC) Body Location melissa lumbar spine Duration (Minutes) 15 Intensity 13 Target/Sweep Sweep Patient Position Hooklying Combined With Heat/Cold Hot Pack Hot Pack/Cold Pack Treatment Hot Pack Location right adductor region Comments during ultrasound and e-stim to right knee PT-OP-T Assessment and Plan Start: 05/15/18 08:14 Freq: Status: Active Protocol: Document 06/04/18 08:13 [facility] (Rec: 06/04/18 12:05 [facility] [id number]) Physical Therapy Assessment Goals Four Impairment Posture Short Term Goal (STG) Patient to demonstrate good understanding of neutral posture and be able to perform postural correction with minimal cues statically and dynamically with function STG Duration 6 wks Halfway Goal (LTG) Patient will demonstrate consistently neutral spinal alignment/posture without cues for improvement of pain and long-term function LTG Duration 3 months Three Impairment strength Short Term Goal (STG) Patient able to demonstrate consistent core stabilization with all activities including exercises and daily activities with minimal cues. Increase LE strength in areas showing deficits by 1/2 grade. STG Duration 6 wks Hydraulic Hammer Operator Goal (LTG) Patient to demonstrate consistent appropriate core stabilization without cues, LE strength to improve to 5/5 LTG Duration 3 months Two Impairment ROM Halfway Goal (LTG) Improve lumbar spine mobility to WNL LTG Duration 3 months One Impairment Activity tolerance: Oswestry score 26% Short Term Goal (STG) Decrease Oswestry score to no greater than 13% STG Duration 6 wks Halfway Goal (LTG) Decrease Oswestry score to no greater than 5% LTG Duration 3 months Assessment Summary Assessment Continues to progress with ther ex with improving postural alignment and core stab awareness. Some pain with advancement to red theraband for Monster steps sideways but smaller steps resolved. Physical Therapy Plan Frequency and Duration Frequency of Treatment 2x/Week Duration of Treatment 3 months Plan of Care Start Date 05/15/18 Plan of Care End Date 08/15/18 Therapeutic Interventions Therapeutic Interventions Aquatic Therapy Home Exercise Program Manual Therapy Neuromuscular Re-education Patient/Caregiver Education Self-Care/Home Management Therapeutic Activities Therapeutic Exercises Modalities Cold Pack/Ice Massage Electric Stimulation Hot Packs Ultrasound Next Visit Focus/Plan Next Note Type Treatment Note Next Visit Plan Continue PT for core stabilization, strengthening, patient education, pain management.
--- NOTE | 2018-06-07 16:37 | PT.OTN ---
Current Diagnoses Low back pain (06/07/18) Physical Therapy Treatment Note PT-OP-A Visit Information Start: 05/15/18 08:14 Freq: Status: Active Protocol: Document 06/04/18 08:13 [facility] (Rec: 06/04/18 08:59 [facility] [id number]) Out-Patient Physical Therapy Visit Information Visit Information Visit Type Treatment Note Visit Start Time 08:15 Visit Stop Time 09:15 Total Visit Minutes 60 Visit Number 7 Number of HEAD SAWYER Visits 0 PT-OP-B Current Condition Start: 05/15/18 08:14 Freq: Status: Active Protocol: Document 05/15/18 08:15 [facility] (Rec: 05/17/18 09:36 [facility] [id number]) Current Condition History of Current Condition Onset Date 3+ years Current Complaints function-limiting LBP, right knee pain History of Current Condition Patient reports worsening, persisten, function-limiting LBP melissa at 3-810. This is complicated by prior knee surgeries and frequent right knee pain which alters how she walks. Has had prior PT, not certain if it was helpful, not fully compliant with HEP. Does go to yoga and walk. Prior Treatments and Tests left ACL repair, left arthroscopy, right knee meniscectomy. Treatment Goals Patient/Caregiver Goals Reduce pain and be able to resume usual activities Prior Functional Status Baseline Function- ADL's Independent Baseline Function- Mobility Independent Baseline Function- Gait no limp, no assistive device Current Functional Impairments (Reported) Functional Limitations- ADL's Unable to take walks without pain, increased pain with ADL' s. Functional Limitations- Mobility/Gait antalgic Functional Limitations- Recreation/ unable to take long walks or Hobbies hike PT-OP-C Subjective Start: 05/15/18 08:14 Freq: Status: Active Protocol: Document 06/07/18 08:14 [facility] (Rec: 06/07/18 08:59 [facility] [id number]) OP-PT Subjective Patient Comments Patient Comments More stiff and sore today. Woke up at 4 am with knee pain . Doesn't want to tape knees today due to skin irritation. PT-OP-F Manual Assessment Start: 05/15/18 08:14 Freq: Status: Active Protocol: Document 05/15/18 08:15 [facility] (Rec: 05/17/18 09:36 [facility] [id number]) Manual Assessments Other Manual Assessments Other Manual Assessments Palpable tightness right piriformis, bilateral lumbar paraspinals PT-OP-G Mobility & Gait Start: 05/15/18 08:14 Freq: Status: Active Protocol: Document 05/15/18 08:15 [facility] (Rec: 05/17/18 09:36 [facility] [id number]) OP Gait Assessment Gait Gait Assistance Required: Independent Assistive Devices Assistive Device None Gait Deviations General Gait Pattern Antalgic Factors Limiting Gait Function Factors Limiting Gait Function Decreased Strength Pain Stair Climbing Evaluation Evaluation Level of Assist On Stairs Independent Devices Stair Climbing Assistive Devices None Technique/Endurance Stair Climbing Direction Ascend and Descend Stair Climbing Technique Step Over Step PT-OP-J Posture/Palpation/Skin Start: 05/15/18 08:14 Freq: Status: Active Protocol: Document 05/15/18 08:15 [facility] (Rec: 05/17/18 09:36 [facility] [id number]) Posture Evaluation Position Standing Head/C-Spine Posture Forward Head T-Spine Posture Flattened L-Spine Posture Increased Lordosis Shifted Left Shoulder Posture (R) Rounded Arm Posture (L) Neutral (R) Neutral Pelvis Posture Anteriorly Tilted Hip Posture (R) Externally Rotated Knee Posture (R) Excess Flexion Foot Arch (L) High Arch (R) High Arch PT-OP-K Range of Motion Start: 05/15/18 08:14 Freq: Status: Active Protocol: Document 05/15/18 08:15 [facility] (Rec: 05/17/18 09:36 [facility] [id number]) Lumbar Spine Range of Motion Lumbar Spine Active Testing Position standing Flexion 10 Extension 30 Rotation Left 45 Rotation Right 45 Lateral Flexion Left 50 Lateral Flexion Right 40 Comments Lack of flexion in lumbar spine, mostly hip hinge and thoracic flexion Hip Goniometric Range of Motion Hip Measured in Degrees Right Testing Position Supine Flexion w/Knee Flexed 140 Straight Leg Raise 80 Extension 25 Abduction 45 Internal Rotation 30 External Rotation 75 Left Testing Position Supine Flexion w/Knee Flexed 140 Straight Leg Raise 85 Extension 10 Abduction 45 Internal Rotation 30 External Rotation 80 Hip ROM Limitations Hip ROM Limitations Pain Knee Goniometric Range of Motion Knee Measured in Degrees Left Knee ROM WFL Yes Right Knee ROM WFL Yes PT-OP-M Strength Start: 05/15/18 08:14 Freq: Status: Active Protocol: Document 05/15/18 08:15 [facility] (Rec: 05/17/18 09:36 [facility] [id number]) Hip Strength Hip Manual Muscle Testing Right Flexion (L2) 4- Good- Extension (S1) 4- Good- Abduction 4- Good- Adduction 4- Good- External Rotation 4- Good- Internal Rotation 4 Good Comments Poor core stabiization noted with testing Left Flexion (L2) 3+ Fair+ Extension (S1) 4- Good- Abduction 4- Good- Adduction 4- Good- External Rotation 4- Good- Internal Rotation 4 Good Comments Poor core stabiliztion noted with testing Knee Strength Knee Manual Muscle Testing Right Flexion (S2) 4 Good Extension (L3) 4 Good Reason Not Measured Pain Left Flexion (S2) 5 Normal Extension (L3) 5 Normal Ankle/Foot Strength Ankle and Foot Manual Muscle Testing Right Dorsiflexion (L4) 5 Normal Inversion 4 Good Left Dorsiflexion (L4) 5 Normal Plantarflexion (S1) 4 Good PT-OP-Q Treatments Start: 05/15/18 08:14 Freq: Status: Active Protocol: Document 06/07/18 08:14 [facility] (Rec: 06/07/18 08:59 [facility] [id number]) Cardio Equipment Recumbent Stepper (Sci-Fit) Duration (Minutes) 5 Resistance 2.7 Other emphasis on neutral alignment, ex in pain-free ROM and intensity Gym Equipment Shuttle Balance 1 Details bal fwd/bck EO and EC, side to side EO and EC Reps/Duration 5 min Comments added narrower base and stride balance; all with alignment and core emphasis Therapeutic Exercises Supine Exercises 8 Supine Exercise Name Supine DLS on foam roller Equipment Used full roll Prone Exercises 1 Prone Exercise Name olga lidia pose with SB Reps/Minutes 30x2 each side Comments manual stretch at pelvis Sidelying Exercises 4 Sidelying Exercise Name QL stretch Sitting Exercises 2 Sitting Exercise Name hamstring curl Resistance 35 Comments unil 1 Sitting Exercise Name hamstsring curl Side bilateral Resistance 60 Standing Exercises 8 Standing Exercise Name wall posture Reps/Minutes 5x 7 Standing Exercise Name HS and HC stretch Side bilateral Reps/Minutes 2x 5 Standing Exercise Name BOSU bal, weight shift, squats (flat side) 3 Standing Exercise Name Monster walks sideways, forward, back Resistance red Reps/Minutes 10 ft x 2 each motion Comments emphasis on alignment Manual Therapy Treatment Taping 1 Comments refused due to skin irritation PT-OP-R Modalities Start: 05/15/18 08:14 Freq: Status: Active Protocol: Document 06/07/18 08:14 [facility] (Rec: 06/07/18 16:35 [facility] [id number]) Electric Stimulation Electric Stimulation Interferential Current (IFC) Body Location melissa lumbar spine Duration (Minutes) 15 Intensity 13 Target/Sweep Sweep Patient Position Hooklying Combined With Heat/Cold Hot Pack Hot Pack/Cold Pack Treatment Hot Pack Location right adductor region Comments during estim to l/s PT-OP-T Assessment and Plan Start: 05/15/18 08:14 Freq: Status: Active Protocol: Document 06/07/18 08:14 [facility] (Rec: 06/07/18 16:35 [facility] [id number]) Physical Therapy Assessment Progress Towards Goals Progress Towards Goals Progressing Toward Goals Progress Comments Frequent cues for postural alignment and core stabilization with all ther ex . Physical Therapy Plan Frequency and Duration Frequency of Treatment 2x/Week Duration of Treatment 3 months Plan of Care Start Date 05/15/18 Plan of Care End Date 08/15/18 Therapeutic Interventions Therapeutic Interventions Aquatic Therapy Home Exercise Program Manual Therapy Neuromuscular Re-education Patient/Caregiver Education Self-Care/Home Management Therapeutic Activities Therapeutic Exercises Modalities Cold Pack/Ice Massage Electric Stimulation Hot Packs Ultrasound Next Visit Focus/Plan Next Note Type Treatment Note Next Visit Plan Continue PT for core stabilization, strengthening, patient education, pain management.
--- NOTE | 2018-06-10 10:35 | PT.OTN ---
Current Diagnoses Low back pain (06/10/18) Physical Therapy Treatment Note PT-OP-A Visit Information Start: 05/15/18 08:14 Freq: Status: Active Protocol: Document 06/10/18 08:15 [facility] (Rec: 06/10/18 09:02 [facility] [id number]) Out-Patient Physical Therapy Visit Information Visit Information Visit Type Treatment Note Visit Start Time 08:15 Visit Stop Time 09:15 Total Visit Minutes 60 Visit Number 8 Number of WELDER 2ND SHIFT Visits 0 PT-OP-B Current Condition Start: 05/15/18 08:14 Freq: Status: Active Protocol: Document 05/15/18 08:15 [facility] (Rec: 05/17/18 09:36 [facility] [id number]) Current Condition History of Current Condition Onset Date 3+ years Current Complaints function-limiting LBP, right knee pain History of Current Condition Patient reports worsening, persisten, function-limiting LBP melissa at 3-10. This is complicated by prior knee surgeries and frequent right knee pain which alters how she walks. Has had prior PT, not certain if it was helpful, not fully compliant with HEP. Does go to yoga and walk. Prior Treatments and Tests left ACL repair, left arthroscopy, right knee meniscectomy. Treatment Goals Patient/Caregiver Goals Reduce pain and be able to resume usual activities Prior Functional Status Baseline Function- ADL's Independent Baseline Function- Mobility Independent Baseline Function- Gait no limp, no assistive device Current Functional Impairments (Reported) Functional Limitations- ADL's Unable to take walks without pain, increased pain with ADL' s. Functional Limitations- Mobility/Gait antalgic Functional Limitations- Recreation/ unable to take long walks or Hobbies hike PT-OP-C Subjective Start: 05/15/18 08:14 Freq: Status: Active Protocol: Document 06/10/18 08:15 [facility] (Rec: 06/10/18 09:02 [facility] [id number]) OP-PT Subjective Patient Comments Patient Comments No new c/o. Feels ok about next session being her last but returning for follow-up in 1 month, wants updated written HEP. PT-OP-F Manual Assessment Start: 05/15/18 08:14 Freq: Status: Active Protocol: Document 05/15/18 08:15 [facility] (Rec: 05/17/18 09:36 [facility] [id number]) Manual Assessments Other Manual Assessments Other Manual Assessments Palpable tightness right piriformis, bilateral lumbar paraspinals PT-OP-G Mobility & Gait Start: 05/15/18 08:14 Freq: Status: Active Protocol: Document 05/15/18 08:15 [facility] (Rec: 05/17/18 09:36 [facility] [id number]) OP Gait Assessment Gait Gait Assistance Required: Independent Assistive Devices Assistive Device None Gait Deviations General Gait Pattern Antalgic Factors Limiting Gait Function Factors Limiting Gait Function Decreased Strength Pain Stair Climbing Evaluation Evaluation Level of Assist On Stairs Independent Devices Stair Climbing Assistive Devices None Technique/Endurance Stair Climbing Direction Ascend and Descend Stair Climbing Technique Step Over Step PT-OP-J Posture/Palpation/Skin Start: 05/15/18 08:14 Freq: Status: Active Protocol: Document 05/15/18 08:15 [facility] (Rec: 05/17/18 09:36 [facility] [id number]) Posture Evaluation Position Standing Head/C-Spine Posture Forward Head T-Spine Posture Flattened L-Spine Posture Increased Lordosis Shifted Left Shoulder Posture (R) Rounded Arm Posture (L) Neutral (R) Neutral Pelvis Posture Anteriorly Tilted Hip Posture (R) Externally Rotated Knee Posture (R) Excess Flexion Foot Arch (L) High Arch (R) High Arch PT-OP-K Range of Motion Start: 05/15/18 08:14 Freq: Status: Active Protocol: Document 05/15/18 08:15 [facility] (Rec: 05/17/18 09:36 [facility] [id number]) Lumbar Spine Range of Motion Lumbar Spine Active Testing Position standing Flexion 10 Extension 30 Rotation Left 45 Rotation Right 45 Lateral Flexion Left 50 Lateral Flexion Right 40 Comments Lack of flexion in lumbar spine, mostly hip hinge and thoracic flexion Hip Goniometric Range of Motion Hip Measured in Degrees Right Testing Position Supine Flexion w/Knee Flexed 140 Straight Leg Raise 80 Extension 25 Abduction 45 Internal Rotation 30 External Rotation 75 Left Testing Position Supine Flexion w/Knee Flexed 140 Straight Leg Raise 85 Extension 10 Abduction 45 Internal Rotation 30 External Rotation 80 Hip ROM Limitations Hip ROM Limitations Pain Knee Goniometric Range of Motion Knee Measured in Degrees Left Knee ROM WFL Yes Right Knee ROM WFL Yes PT-OP-M Strength Start: 05/15/18 08:14 Freq: Status: Active Protocol: Document 05/15/18 08:15 [facility] (Rec: 05/17/18 09:36 [facility] [id number]) Hip Strength Hip Manual Muscle Testing Right Flexion (L2) 4- Good- Extension (S1) 4- Good- Abduction 4- Good- Adduction 4- Good- External Rotation 4- Good- Internal Rotation 4 Good Comments Poor core stabiization noted with testing Left Flexion (L2) 3+ Fair+ Extension (S1) 4- Good- Abduction 4- Good- Adduction 4- Good- External Rotation 4- Good- Internal Rotation 4 Good Comments Poor core stabiliztion noted with testing Knee Strength Knee Manual Muscle Testing Right Flexion (S2) 4 Good Extension (L3) 4 Good Reason Not Measured Pain Left Flexion (S2) 5 Normal Extension (L3) 5 Normal Ankle/Foot Strength Ankle and Foot Manual Muscle Testing Right Dorsiflexion (L4) 5 Normal Inversion 4 Good Left Dorsiflexion (L4) 5 Normal Plantarflexion (S1) 4 Good PT-OP-Q Treatments Start: 05/15/18 08:14 Freq: Status: Active Protocol: Document 06/10/18 08:15 [facility] (Rec: 06/10/18 09:02 [facility] [id number]) Cardio Equipment Recumbent Stepper (Sci-Fit) Duration (Minutes) 5 Resistance 3.0 Other emphasis on neutral alignment, ex in pain-free ROM and intensity Therapeutic Exercises Supine Exercises 8 Supine Exercise Name Supine DLS on foam roller Equipment Used full roll 6 Supine Exercise Name bridge, hamstring curl, LTR Equipment Used 65 cm ball Prone Exercises 1 Prone Exercise Name olga lidia pose with SB Standing Exercises 9 Standing Exercise Name Hip ab, add, flex, ext Side bilateral Equipment Used L2 TB Reps/Minutes 10x ea 7 Standing Exercise Name HS, quad, and HC stretch Side bilateral Reps/Minutes 2x Manual Therapy Treatment Taping 1 Comments refused due to skin irritation PT-OP-R Modalities Start: 05/15/18 08:14 Freq: Status: Active Protocol: Document 06/10/18 08:15 [facility] (Rec: 06/10/18 09:02 [facility] [id number]) Electric Stimulation Electric Stimulation Interferential Current (IFC) Body Location melissa lumbar spine Duration (Minutes) 15 Intensity 13 Target/Sweep Sweep Patient Position Hooklying Combined With Heat/Cold Hot Pack Hot Pack/Cold Pack Treatment Hot Pack Location right adductor region Comments during estim to l/s PT-OP-T Assessment and Plan Start: 05/15/18 08:14 Freq: Status: Active Protocol: Document 06/10/18 08:15 [facility] (Rec: 06/10/18 09:02 [facility] [id number]) Physical Therapy Plan Frequency and Duration Frequency of Treatment 2x/Week Duration of Treatment 3 months Plan of Care Start Date 05/15/18 Plan of Care End Date 08/15/18 Therapeutic Interventions Therapeutic Interventions Aquatic Therapy Home Exercise Program Manual Therapy Neuromuscular Re-education Patient/Caregiver Education Self-Care/Home Management Therapeutic Activities Therapeutic Exercises Modalities Cold Pack/Ice Massage Electric Stimulation Hot Packs Ultrasound Next Visit Focus/Plan Next Note Type Treatment Note Next Visit Plan Review HEP, issue written HEP. Schedule for 1 month follow- up.
--- NOTE | 2018-06-13 10:58 | PT.OTN ---
Current Diagnoses Low back pain (06/13/18) Physical Therapy Treatment Note PT-OP-A Visit Information Start: 05/15/18 08:14 Freq: Status: Active Protocol: Document 06/13/18 08:15 [facility] (Rec: 06/13/18 09:09 [facility] [id number]) Out-Patient Physical Therapy Visit Information Visit Information Visit Type Treatment Note Visit Start Time 08:15 Visit Stop Time 09:15 Total Visit Minutes 60 Visit Number 9 Number of SHUTTLE INSPECTOR Visits 0 Evaluation Information Evaluation Date 05/15/18 PT-OP-B Current Condition Start: 05/15/18 08:14 Freq: Status: Active Protocol: Document 05/15/18 08:15 [facility] (Rec: 05/17/18 09:36 [facility] [id number]) Current Condition History of Current Condition Onset Date 3+ years Current Complaints function-limiting LBP, right knee pain History of Current Condition Patient reports worsening, persisten, function-limiting LBP melissa at 3-8/10. This is complicated by prior knee surgeries and frequent right knee pain which alters how she walks. Has had prior PT, not certain if it was helpful, not fully compliant with HEP. Does go to yoga and walk. Prior Treatments and Tests left ACL repair, left arthroscopy, right knee meniscectomy. Treatment Goals Patient/Caregiver Goals Reduce pain and be able to resume usual activities Prior Functional Status Baseline Function- ADL's Independent Baseline Function- Mobility Independent Baseline Function- Gait no limp, no assistive device Current Functional Impairments (Reported) Functional Limitations- ADL's Unable to take walks without pain, increased pain with ADL' s. Functional Limitations- Mobility/Gait antalgic Functional Limitations- Recreation/ unable to take long walks or Hobbies hike PT-OP-C Subjective Start: 05/15/18 08:14 Freq: Status: Active Protocol: Document 06/13/18 08:15 [facility] (Rec: 06/13/18 10:58 [facility] [id number]) OP-PT Subjective Patient Comments Patient Comments Improving. Feels PT and ther ex helpful. After today's visit will return in approximately 1 month to determine need for further PT. Needs written HEP. PT-OP-F Manual Assessment Start: 05/15/18 08:14 Freq: Status: Active Protocol: Document 05/15/18 08:15 [facility] (Rec: 05/17/18 09:36 [facility] [id number]) Manual Assessments Other Manual Assessments Other Manual Assessments Palpable tightness right piriformis, bilateral lumbar paraspinals PT-OP-G Mobility & Gait Start: 05/15/18 08:14 Freq: Status: Active Protocol: Document 05/15/18 08:15 [facility] (Rec: 05/17/18 09:36 [facility] [id number]) OP Gait Assessment Gait Gait Assistance Required: Independent Assistive Devices Assistive Device None Gait Deviations General Gait Pattern Antalgic Factors Limiting Gait Function Factors Limiting Gait Function Decreased Strength Pain Stair Climbing Evaluation Evaluation Level of Assist On Stairs Independent Devices Stair Climbing Assistive Devices None Technique/Endurance Stair Climbing Direction Ascend and Descend Stair Climbing Technique Step Over Step PT-OP-J Posture/Palpation/Skin Start: 05/15/18 08:14 Freq: Status: Active Protocol: Document 05/15/18 08:15 [facility] (Rec: 05/17/18 09:36 [facility] [id number]) Posture Evaluation Position Standing Head/C-Spine Posture Forward Head T-Spine Posture Flattened L-Spine Posture Increased Lordosis Shifted Left Shoulder Posture (R) Rounded Arm Posture (L) Neutral (R) Neutral Pelvis Posture Anteriorly Tilted Hip Posture (R) Externally Rotated Knee Posture (R) Excess Flexion Foot Arch (L) High Arch (R) High Arch PT-OP-K Range of Motion Start: 05/15/18 08:14 Freq: Status: Active Protocol: Document 05/15/18 08:15 [facility] (Rec: 05/17/18 09:36 [facility] [id number]) Lumbar Spine Range of Motion Lumbar Spine Active Testing Position standing Flexion 10 Extension 30 Rotation Left 45 Rotation Right 45 Lateral Flexion Left 50 Lateral Flexion Right 40 Comments Lack of flexion in lumbar spine, mostly hip hinge and thoracic flexion Hip Goniometric Range of Motion Hip Measured in Degrees Right Testing Position Supine Flexion w/Knee Flexed 140 Straight Leg Raise 80 Extension 25 Abduction 45 Internal Rotation 30 External Rotation 75 Left Testing Position Supine Flexion w/Knee Flexed 140 Straight Leg Raise 85 Extension 10 Abduction 45 Internal Rotation 30 External Rotation 80 Hip ROM Limitations Hip ROM Limitations Pain Knee Goniometric Range of Motion Knee Measured in Degrees Left Knee ROM WFL Yes Right Knee ROM WFL Yes PT-OP-M Strength Start: 05/15/18 08:14 Freq: Status: Active Protocol: Document 05/15/18 08:15 [facility] (Rec: 05/17/18 09:36 [facility] [id number]) Hip Strength Hip Manual Muscle Testing Right Flexion (L2) 4- Good- Extension (S1) 4- Good- Abduction 4- Good- Adduction 4- Good- External Rotation 4- Good- Internal Rotation 4 Good Comments Poor core stabiization noted with testing Left Flexion (L2) 3+ Fair+ Extension (S1) 4- Good- Abduction 4- Good- Adduction 4- Good- External Rotation 4- Good- Internal Rotation 4 Good Comments Poor core stabiliztion noted with testing Knee Strength Knee Manual Muscle Testing Right Flexion (S2) 4 Good Extension (L3) 4 Good Reason Not Measured Pain Left Flexion (S2) 5 Normal Extension (L3) 5 Normal Ankle/Foot Strength Ankle and Foot Manual Muscle Testing Right Dorsiflexion (L4) 5 Normal Inversion 4 Good Left Dorsiflexion (L4) 5 Normal Plantarflexion (S1) 4 Good PT-OP-Q Treatments Start: 05/15/18 08:14 Freq: Status: Active Protocol: Document 06/13/18 08:15 [facility] (Rec: 06/13/18 10:58 [facility] [id number]) Cardio Equipment Recumbent Stepper (Sci-Fit) Duration (Minutes) 5 Resistance 3.0 Other emphasis on neutral alignment, ex in pain-free ROM and intensity Therapeutic Exercises Sidelying Exercises 4 Sidelying Exercise Name QL stretch Manual Therapy Treatment Soft Tissue Mobilization 1 Body Location bilateral QL, lumbar paraspinals Mobilization Type Myofascial Release Rolling Strumming Intensity/Depth Moderate Body Position Prone PT-OP-R Modalities Start: 05/15/18 08:14 Freq: Status: Active Protocol: Document 06/13/18 08:15 [facility] (Rec: 06/13/18 10:58 [facility] [id number]) Electric Stimulation Electric Stimulation Interferential Current (IFC) Body Location melissa lumbar spine Duration (Minutes) 15 Intensity 13 Target/Sweep Sweep Patient Position Hooklying Combined With Heat/Cold Hot Pack Ultrasound Therapy Treatment Back Treatment Duration (minutes) 8 Patient Position Prone Mode Setting Continuous Duty Cycle 100% Intensity Setting (w/cm2) 1.5 Comments bilateral QL, lumbar paraspinals PT-OP-T Assessment and Plan Start: 05/15/18 08:14 Freq: Status: Active Protocol: Document 06/13/18 08:15 [facility] (Rec: 06/13/18 10:58 [facility] [id number]) Physical Therapy Assessment Goals Four Impairment Posture Short Term Goal (STG) Patient to demonstrate good understanding of neutral posture and be able to perform postural correction with minimal cues statically and dynamically with function STG Duration 6 wks Fdc Goal (LTG) Patient will demonstrate consistently neutral spinal alignment/posture without cues for improvement of pain and long-term function LTG Duration 3 months Three Impairment strength Short Term Goal (STG) Patient able to demonstrate consistent core stabilization with all activities including exercises and daily activities with minimal cues. Increase LE strength in areas showing deficits by 1/2 grade. STG Duration 6 wks Fdc Goal (LTG) Patient to demonstrate consistent appropriate core stabilization without cues, LE strength to improve to 5/5 LTG Duration 3 months Two Impairment ROM [employer] Goal (LTG) Improve lumbar spine mobility to WNL LTG Duration 3 months One Impairment Activity tolerance: Oswestry score 26% Short Term Goal (STG) Decrease Oswestry score to no greater than 13% STG Duration 6 wks Fdc Goal (LTG) Decrease Oswestry score to no greater than 5% LTG Duration 3 months Progress Towards Goals Progress Towards Goals Progressing Toward Goals Assessment Summary Assessment demonstrating good understanding of ther ex. Pain level variable. Strength and body awareness improving. Physical Therapy Plan Frequency and Duration Frequency of Treatment 2x/Week Duration of Treatment 3 months Plan of Care Start Date 05/15/18 Plan of Care End Date 08/15/18 Therapeutic Interventions Therapeutic Interventions Aquatic Therapy Home Exercise Program Manual Therapy Neuromuscular Re-education Patient/Caregiver Education Self-Care/Home Management Therapeutic Activities Therapeutic Exercises Next Visit Focus/Plan Next Note Type Treatment Note Next Visit Plan See patient in 1 month for follow-up, determine need for further PT at that time. She plans to continue with HEP and self-management.
--- NOTE | 2018-07-11 09:26 | PT.OTN ---
Current Diagnoses Low back pain (07/11/18) Physical Therapy Treatment Note PT-OP-A Visit Information Start: 05/15/18 08:14 Freq: Status: Active Protocol: Document 07/11/18 08:11 [facility] (Rec: 07/11/18 09:02 [facility] [id number]) Out-Patient Physical Therapy Visit Information Visit Information Visit Type Treatment Note Visit Start Time 08:15 Visit Stop Time 09:13 Total Visit Minutes 58 Visit Number 10 Number of OPERATOR CONTROL ROOM Visits 0 PT-OP-B Current Condition Start: 05/15/18 08:14 Freq: Status: Active Protocol: Document 05/15/18 08:15 [facility] (Rec: 05/17/18 09:36 [facility] [id number]) Current Condition History of Current Condition Onset Date 3+ years Current Complaints function-limiting LBP, right knee pain History of Current Condition Patient reports worsening, persisten, function-limiting LBP melissa at 3-810. This is complicated by prior knee surgeries and frequent right knee pain which alters how she walks. Has had prior PT, not certain if it was helpful, not fully compliant with HEP. Does go to yoga and walk. Prior Treatments and Tests left ACL repair, left arthroscopy, right knee meniscectomy. Treatment Goals Patient/Caregiver Goals Reduce pain and be able to resume usual activities Prior Functional Status Baseline Function- ADL's Independent Baseline Function- Mobility Independent Baseline Function- Gait no limp, no assistive device Current Functional Impairments (Reported) Functional Limitations- ADL's Unable to take walks without pain, increased pain with ADL' s. Functional Limitations- Mobility/Gait antalgic Functional Limitations- Recreation/ unable to take long walks or Hobbies hike PT-OP-C Subjective Start: 05/15/18 08:14 Freq: Status: Active Protocol: Document 07/11/18 08:11 [facility] (Rec: 07/11/18 09:16 [facility] [id number]) OP-PT Subjective Patient Comments Patient Comments Reports she feels she is improving though would be better with better compliance to HEP. Doing a lot of stretching but hasn't done as much strengthening. Paying attention to posture and LE alignment, overall pain decreased but persists. Patient Reported Progress Improving Patient Questionnaires Oswestry Low Back Index Oswestry Score 16 Oswestry Impairment 1 to 19% Impaired (Score 1-19) OP-PT Pain Assessment Location Right Knee Intensity 5 Scale Used Numeric (1 - 10) Description Acute Burning Pinching Pressure Spasm Tightness With Movement Bilateral Back Intensity 4 Scale Used Numeric (1 - 10) Description Aching Burning Pinching Spasm Tightness With Movement Frequency Frequent Pain Aggravating Factors ADL's Standing Walking Lifting Pain Alleviating Factors None PT-OP-F Manual Assessment Start: 05/15/18 08:14 Freq: Status: Active Protocol: Document 05/15/18 08:15 [facility] (Rec: 05/17/18 09:36 [facility] [id number]) Manual Assessments Other Manual Assessments Other Manual Assessments Palpable tightness right piriformis, bilateral lumbar paraspinals PT-OP-G Mobility & Gait Start: 05/15/18 08:14 Freq: Status: Active Protocol: Document 05/15/18 08:15 [facility] (Rec: 05/17/18 09:36 [facility] [id number]) OP Gait Assessment Gait Gait Assistance Required: Independent Assistive Devices Assistive Device None Gait Deviations General Gait Pattern Antalgic Factors Limiting Gait Function Factors Limiting Gait Function Decreased Strength Pain Stair Climbing Evaluation Evaluation Level of Assist On Stairs Independent Devices Stair Climbing Assistive Devices None Technique/Endurance Stair Climbing Direction Ascend and Descend Stair Climbing Technique Step Over Step PT-OP-J Posture/Palpation/Skin Start: 05/15/18 08:14 Freq: Status: Active Protocol: Document 05/15/18 08:15 [facility] (Rec: 05/17/18 09:36 [facility] [id number]) Posture Evaluation Position Standing Head/C-Spine Posture Forward Head T-Spine Posture Flattened L-Spine Posture Increased Lordosis Shifted Left Shoulder Posture (R) Rounded Arm Posture (L) Neutral (R) Neutral Pelvis Posture Anteriorly Tilted Hip Posture (R) Externally Rotated Knee Posture (R) Excess Flexion Foot Arch (L) High Arch (R) High Arch PT-OP-K Range of Motion Start: 05/15/18 08:14 Freq: Status: Active Protocol: Document 05/15/18 08:15 [facility] (Rec: 05/17/18 09:36 [facility] [id number]) Lumbar Spine Range of Motion Lumbar Spine Active Testing Position standing Flexion 10 Extension 30 Rotation Left 45 Rotation Right 45 Lateral Flexion Left 50 Lateral Flexion Right 40 Comments Lack of flexion in lumbar spine, mostly hip hinge and thoracic flexion Hip Goniometric Range of Motion Hip Measured in Degrees Right Testing Position Supine Flexion w/Knee Flexed 140 Straight Leg Raise 80 Extension 25 Abduction 45 Internal Rotation 30 External Rotation 75 Left Testing Position Supine Flexion w/Knee Flexed 140 Straight Leg Raise 85 Extension 10 Abduction 45 Internal Rotation 30 External Rotation 80 Hip ROM Limitations Hip ROM Limitations Pain Knee Goniometric Range of Motion Knee Measured in Degrees Left Knee ROM WFL Yes Right Knee ROM WFL Yes PT-OP-M Strength Start: 05/15/18 08:14 Freq: Status: Active Protocol: Document 05/15/18 08:15 [facility] (Rec: 05/17/18 09:36 [facility] [id number]) Hip Strength Hip Manual Muscle Testing Right Flexion (L2) 4- Good- Extension (S1) 4- Good- Abduction 4- Good- Adduction 4- Good- External Rotation 4- Good- Internal Rotation 4 Good Comments Poor core stabiization noted with testing Left Flexion (L2) 3+ Fair+ Extension (S1) 4- Good- Abduction 4- Good- Adduction 4- Good- External Rotation 4- Good- Internal Rotation 4 Good Comments Poor core stabiliztion noted with testing Knee Strength Knee Manual Muscle Testing Right Flexion (S2) 4 Good Extension (L3) 4 Good Reason Not Measured Pain Left Flexion (S2) 5 Normal Extension (L3) 5 Normal Ankle/Foot Strength Ankle and Foot Manual Muscle Testing Right Dorsiflexion (L4) 5 Normal Inversion 4 Good Left Dorsiflexion (L4) 5 Normal Plantarflexion (S1) 4 Good PT-OP-Q Treatments Start: 05/15/18 08:14 Freq: Status: Active Protocol: Document 07/11/18 08:11 [facility] (Rec: 07/11/18 09:26 [facility] [id number]) Cardio Equipment Recumbent Stepper (Sci-Fit) Duration (Minutes) 5 Resistance 3.0 Other emphasis on neutral alignment, ex in pain-free ROM and intensity Therapeutic Exercises Supine Exercises 6 Supine Exercise Name bridge, hamstring curl, LTR Equipment Used 65 cm ball Other Exercises 1 Other Exercise Name quadruped opp UE/LE lift Comments core stabiization emphasis Manual Therapy Treatment Soft Tissue Mobilization 1 Body Location bilateral QL, lumbar paraspinals Mobilization Type Myofascial Release Rolling Strumming Intensity/Depth Moderate Body Position Prone PT-OP-R Modalities Start: 05/15/18 08:14 Freq: Status: Active Protocol: Document 07/11/18 08:11 [facility] (Rec: 07/11/18 09:26 [facility] [id number]) Electric Stimulation Electric Stimulation Interferential Current (IFC) Body Location melissa lumbar spine Duration (Minutes) 15 Intensity 13 Target/Sweep Sweep Patient Position Hooklying Combined With Heat/Cold Hot Pack Hot Pack/Cold Pack Treatment Hot Pack Location right adductor region Comments during estim to l/s Ultrasound Therapy Treatment Back Treatment Duration (minutes) 8 Patient Position Prone Mode Setting Continuous Duty Cycle 100% Intensity Setting (w/cm2) 1.5 Comments bilateral QL, lumbar paraspinals Right Medial Knee Treatment Duration (minutes) 8 Patient Position Hooklying Mode Setting Continuous Intensity Setting (w/cm2) 1.2 PT-OP-T Assessment and Plan Start: 05/15/18 08:14 Freq: Status: Active Protocol: Document 07/11/18 08:11 [facility] (Rec: 07/11/18 09:02 [facility] [id number]) Physical Therapy Assessment Goals Four Impairment Posture Short Term Goal (STG) Patient to demonstrate good understanding of neutral posture and be able to perform postural correction with minimal cues statically and dynamically with function ( goal achieved Biomathematician Goal (LTG) Patient will demonstrate consistently neutral spinal alignment/posture without cues for improvement of pain and long-term function (goal progress) LTG Duration 2 months Three Impairment strength Short Term Goal (STG) Patient able to demonstrate consistent core stabilization with all activities including exercises and daily activities with minimal cues. Increase LE strength in areas showing deficits by 1/2 grade. (goal progress) STG Duration 4 wks Alf Goal (LTG) Patient to demonstrate consistent appropriate core stabilization without cues, LE strength to improve to 5/5 LTG Duration 2 months Two Impairment ROM Alf Goal (LTG) Improve lumbar spine mobility to WNL (goal achieved) One Impairment Activity tolerance: Oswestry score 26% Short Term Goal (STG) Decrease Oswestry score to no greater than 13% (goal progress) STG Duration 4 wks Biomathematician Goal (LTG) Decrease Oswestry score to no greater than 5% (goal progress ) LTG Duration 2months Progress Towards Goals Progress Towards Goals Progressing Toward Goals Progress Comments Now able to tolerate all 4's UE/LE lift and is demonstrating goal progress in all areas, met goal for postural correcting. Assessment Summary Assessment Recommend patient return in 1 month for further assessment and progression of her home program and self-care. Physical Therapy Plan Frequency and Duration Frequency of Treatment 2 visits Duration of Treatment 2 months Plan of Care Start Date 07/11/18 Plan of Care End Date 09/10/18 Therapeutic Interventions Therapeutic Interventions Aquatic Therapy Home Exercise Program Manual Therapy Neuromuscular Re-education Patient/Caregiver Education Self-Care/Home Management Therapeutic Activities Therapeutic Exercises Next Visit Focus/Plan Next Visit Plan See patient in 1 month for follow-up, determine need for further PT at that time. She plans to continue with HEP and self-management.
--- NOTE | 2018-07-11 09:26 | PT.OPPOC ---
Current Diagnoses Low back pain (07/11/18) Provider Visit Care Team Role Provider Type Bill White MD Attending Provider Physician Family Provider Primary Care Provider Specialty: Family Practice Address: [address] [place] [address], [id number] Email: [email or web address] Plan Of Care PT-OP-T Assessment and Plan Start: 05/15/18 08:14 Freq: Status: Active Protocol: Document 07/11/18 08:11 [facility] (Rec: 07/11/18 09:02 [facility] [id number]) Physical Therapy Assessment Goals Four Impairment Posture Short Term Goal (STG) Patient to demonstrate good understanding of neutral posture and be able to perform postural correction with minimal cues statically and dynamically with function ( goal achieved Metal Cleaner Goal (LTG) Patient will demonstrate consistently neutral spinal alignment/posture without cues for improvement of pain and long-term function (goal progress) LTG Duration 2 months Three Impairment strength Short Term Goal (STG) Patient able to demonstrate consistent core stabilization with all activities including exercises and daily activities with minimal cues. Increase LE strength in areas showing deficits by 1/2 grade. (goal progress) STG Duration 4 wks [facility] Goal (LTG) Patient to demonstrate consistent appropriate core stabilization without cues, LE strength to improve to 5/5 LTG Duration 2 months Two Impairment ROM Metal Cleaner Goal (LTG) Improve lumbar spine mobility to WNL (goal achieved) One Impairment Activity tolerance: Oswestry score 26% Short Term Goal (STG) Decrease Oswestry score to no greater than 13% (goal progress) STG Duration 4 wks Metal Cleaner Goal (LTG) Decrease Oswestry score to no greater than 5% (goal progress ) LTG Duration 2months Progress Towards Goals Progress Towards Goals Progressing Toward Goals Progress Comments Now able to tolerate all 4's UE/LE lift and is demonstrating goal progress in all areas, met goal for postural correcting. Assessment Summary Assessment Recommend patient return in 1 month for further assessment and progression of her home program and self-care. Physical Therapy Plan Frequency and Duration Frequency of Treatment 2 visits Duration of Treatment 2 months Plan of Care Start Date 07/11/18 Plan of Care End Date 09/10/18 Therapeutic Interventions Therapeutic Interventions Aquatic Therapy Home Exercise Program Manual Therapy Neuromuscular Re-education Patient/Caregiver Education Self-Care/Home Management Therapeutic Activities Therapeutic Exercises Next Visit Focus/Plan Next Visit Plan See patient in 1 month for follow-up, determine need for further PT at that time. She plans to continue with HEP and self-management. Plan of Care Dates Plan of Care Start Date 07/11/18 Plan of Care End Date 09/10/18 Please Sign and Return: I have reviewed this Plan of Care and certify that the skilled therapy services above are required to meet the patient?s needs. Physician Signature Date Printed Name and Credentials Clinical Instructor Signature Printed Name and Credentials
--- NOTE | 2018-09-22 11:28 | PT.OPDS ---
Current Diagnoses Low back pain (07/11/18) Provider Visit Care Team Role Provider Type Bill White MD Attending Provider Physician Family Provider Primary Care Provider Specialty: Family Practice Address: [address] [place] [address], [facility] Email: [email or web address] Visit Number Visit Number 10 Discharge Summary PT-OP-B Current Condition Start: 05/15/18 08:14 Freq: Status: Active Protocol: Document 05/15/18 08:15 [facility] (Rec: 05/17/18 09:36 [facility] [id number]) Current Condition History of Current Condition Onset Date 3+ years Current Complaints function-limiting LBP, right knee pain History of Current Condition Patient reports worsening, persisten, function-limiting LBP melissa at 3-06/14. This is complicated by prior knee surgeries and frequent right knee pain which alters how she walks. Has had prior PT, not certain if it was helpful, not fully compliant with HEP. Does go to yoga and walk. Prior Treatments and Tests left ACL repair, left arthroscopy, right knee meniscectomy. Treatment Goals Patient/Caregiver Goals Reduce pain and be able to resume usual activities Prior Functional Status Baseline Function- ADL's Independent Baseline Function- Mobility Independent Baseline Function- Gait no limp, no assistive device Current Functional Impairments (Reported) Functional Limitations- ADL's Unable to take walks without pain, increased pain with ADL' s. Functional Limitations- Mobility/Gait antalgic Functional Limitations- Recreation/ unable to take long walks or Hobbies hike PT-OP-C Subjective Start: 05/15/18 08:14 Freq: Status: Active Protocol: Document 07/11/18 08:11 [facility] (Rec: 07/11/18 09:16 [facility] [id number]) OP-PT Subjective Patient Comments Patient Comments Reports she feels she is improving though would be better with better compliance to HEP. Doing a lot of stretching but hasn't done as much strengthening. Paying attention to posture and LE alignment, overall pain decreased but persists. Patient Reported Progress Improving Patient Questionnaires Oswestry Low Back Index Oswestry Score 16 Oswestry Impairment 1 to 19% Impaired (Score 1-19) OP-PT Pain Assessment Location Right Knee Intensity 5 Scale Used Numeric (1 - 10) Description Acute Burning Pinching Pressure Spasm Tightness With Movement Bilateral Back Intensity 4 Scale Used Numeric (1 - 10) Description Aching Burning Pinching Spasm Tightness With Movement Frequency Frequent Pain Aggravating Factors ADL's Standing Walking Lifting Pain Alleviating Factors None PT-OP-F Manual Assessment Start: 05/15/18 08:14 Freq: Status: Active Protocol: Document 05/15/18 08:15 [facility] (Rec: 05/17/18 09:36 [facility] [id number]) Manual Assessments Other Manual Assessments Other Manual Assessments Palpable tightness right piriformis, bilateral lumbar paraspinals PT-OP-G Mobility & Gait Start: 05/15/18 08:14 Freq: Status: Active Protocol: Document 05/15/18 08:15 [facility] (Rec: 05/17/18 09:36 [facility] [id number]) OP Gait Assessment Gait Gait Assistance Required: Independent Assistive Devices Assistive Device None Gait Deviations General Gait Pattern Antalgic Factors Limiting Gait Function Factors Limiting Gait Function Decreased Strength Pain Stair Climbing Evaluation Evaluation Level of Assist On Stairs Independent Devices Stair Climbing Assistive Devices None Technique/Endurance Stair Climbing Direction Ascend and Descend Stair Climbing Technique Step Over Step PT-OP-J Posture/Palpation/Skin Start: 05/15/18 08:14 Freq: Status: Active Protocol: Document 05/15/18 08:15 [facility] (Rec: 05/17/18 09:36 [facility] [id number]) Posture Evaluation Position Standing Head/C-Spine Posture Forward Head T-Spine Posture Flattened L-Spine Posture Increased Lordosis Shifted Left Shoulder Posture (R) Rounded Arm Posture (L) Neutral (R) Neutral Pelvis Posture Anteriorly Tilted Hip Posture (R) Externally Rotated Knee Posture (R) Excess Flexion Foot Arch (L) High Arch (R) High Arch PT-OP-K Range of Motion Start: 05/15/18 08:14 Freq: Status: Active Protocol: Document 05/15/18 08:15 [facility] (Rec: 05/17/18 09:36 [facility] [id number]) Lumbar Spine Range of Motion Lumbar Spine Active Testing Position standing Flexion 10 Extension 30 Rotation Left 45 Rotation Right 45 Lateral Flexion Left 50 Lateral Flexion Right 40 Comments Lack of flexion in lumbar spine, mostly hip hinge and thoracic flexion Hip Goniometric Range of Motion Hip Measured in Degrees Right Testing Position Supine Flexion w/Knee Flexed 140 Straight Leg Raise 80 Extension 25 Abduction 45 Internal Rotation 30 External Rotation 75 Left Testing Position Supine Flexion w/Knee Flexed 140 Straight Leg Raise 85 Extension 10 Abduction 45 Internal Rotation 30 External Rotation 80 Hip ROM Limitations Hip ROM Limitations Pain Knee Goniometric Range of Motion Knee Measured in Degrees Left Knee ROM WFL Yes Right Knee ROM WFL Yes PT-OP-M Strength Start: 05/15/18 08:14 Freq: Status: Active Protocol: Document 05/15/18 08:15 [facility] (Rec: 05/17/18 09:36 [facility] [id number]) Hip Strength Hip Manual Muscle Testing Right Flexion (L2) 4- Good- Extension (S1) 4- Good- Abduction 4- Good- Adduction 4- Good- External Rotation 4- Good- Internal Rotation 4 Good Comments Poor core stabiization noted with testing Left Flexion (L2) 3+ Fair+ Extension (S1) 4- Good- Abduction 4- Good- Adduction 4- Good- External Rotation 4- Good- Internal Rotation 4 Good Comments Poor core stabiliztion noted with testing Knee Strength Knee Manual Muscle Testing Right Flexion (S2) 4 Good Extension (L3) 4 Good Reason Not Measured Pain Left Flexion (S2) 5 Normal Extension (L3) 5 Normal Ankle/Foot Strength Ankle and Foot Manual Muscle Testing Right Dorsiflexion (L4) 5 Normal Inversion 4 Good Left Dorsiflexion (L4) 5 Normal Plantarflexion (S1) 4 Good PT-OP-T Assessment and Plan Start: 05/15/18 08:14 Freq: Status: Active Protocol: Document 09/22/18 11:27 [facility] (Rec: 09/22/18 11:28 [facility] [id number]) Physical Therapy Plan Discharge Physical Therapy Discharge Reasons Goals Met Discharge Comments Patient was last seen for PT , was to return if she felt need for further PT. She was independnet with HEP. Should do well with compliance to HEP.
== END 2018-10-21 10:55 ==
LOC: PHYS 08:15
PROVIDERS: Family Provider Family Medicine; PCP Family Medicine; Visit Provider Family Medicine
DX: M54.5 Low back pain (principal)
CPT/HCPCS: 97014; 97035; 97110; 97140; 97162; 97530; 97535; G0283

== ENCOUNTER → 2019-03-07 07:55 | Outpatient (CLI) | payer OTHER, SELFPAY ==
--- NOTE | 2019-03-07 | DI.MG.S_ITS ---
BILATERAL DIGITAL SCREENING MAMMOGRAM 3D/2D WITH CAD: 03/07/2019 CLINICAL: Routine screening. Comparison is made to exams dated: 03/04/2018 mammogram, 02/18/2016 mammogram, and 02/12/2015 mammogram - [facility]. The tissue of both breasts is extremely dense, which lowers the sensitivity of mammography. Current study was also evaluated with a Computer Aided Detection (CAD) system. No significant masses, calcifications, or other findings are seen in either breast. There has been no significant interval change. IMPRESSION: NEGATIVE There is no mammographic evidence of malignancy. A 1 year screening mammogram is recommended. This exam was interpreted at Station ID: [id number]. NOTE: For mammograms, a report in lay terms will be sent to the patient. Approximately 15% of breast malignancies will not be visualized mammographically. In the management of a palpable breast mass, a negative mammogram must not discourage biopsy of a clinically suspicious lesion. Electronically Signed By: Jonna duran/francia:03/07/2019 08:30:18 letter sent: Normal Exam ACR BI-RADS Category 1: Negative [id number]
== END ==
PROVIDERS: Family Provider Family Medicine; PCP Family Medicine; Visit Provider Family Medicine
DX: Z12.31 Encounter for screening mammogram for malignant neoplasm of breast (principal)
CPT/HCPCS: 77063; 77067

== ENCOUNTER → 2019-12-08 08:58 | Outpatient (CLI) | payer OTHER, SELFPAY ==
--- NOTE | 2019-12-08 08:59 | DI.RAD.S_ITS ---
PROCEDURE: XR WRIST RT MIN 3V INDICATIONS: fall wrist elbow pain TECHNIQUE: 4 views of the wrist were acquired. COMPARISON: None. FINDINGS: Bones: No fractures or dislocations. No suspicious bony lesions. Scaphoid view: Unremarkable. Soft tissues: No suspicious soft tissue calcifications. IMPRESSION: No acute osseous abnormality. Dictated by: Baljinder Bower M.D. on 12/08/2019 at 9:35 Approved by: Baljinder Bower M.D. on 12/08/2019 at 9:36
--- NOTE | 2019-12-08 08:59 | DI.RAD.S_ITS ---
PROCEDURE: XR FOREARM RT 2V INDICATIONS: fall wrist elbow pain TECHNIQUE: 2 views of the forearm were acquired. COMPARISON: [facility], , XR ELBOW RT MIN 3V, 12/08/2019, 9:08. FINDINGS: Bones: No fractures or dislocations. No suspicious bony lesions. Soft tissues: No suspicious soft tissue calcifications or masses. IMPRESSION: No acute osseous abnormality. Dictated by: Baljinder Bower M.D. on 12/08/2019 at 9:36 Approved by: Baljinder Bower M.D. on 12/08/2019 at 9:37
--- NOTE | 2019-12-08 08:59 | DI.RAD.S_ITS ---
PROCEDURE: XR ELBOW RT MIN 3V INDICATIONS: fall wrist elbow pain TECHNIQUE: 3 views of the elbow were acquired. COMPARISON: [facility], CR, XR FOREARM RT 2V, 12/08/2019, 9:08. FINDINGS: Bones: No fractures or dislocations. No suspicious bony lesions. Osteophytic lipping of the coronoid. Small enthesophyte of the olecranon. Soft tissues: No elbow joint effusion. No suspicious soft tissue calcifications. IMPRESSION: No acute osseous abnormality. Dictated by: Baljinder Bower M.D. on 12/08/2019 at 9:33 Approved by: Baljinder Bower M.D. on 12/08/2019 at 9:35
== END ==
PROVIDERS: Family Provider Family Medicine; PCP Family Medicine; Referring Provider Family Medicine; Visit Provider Family Medicine
DX: M25.531 Pain in right wrist (principal); M25.521 Pain in right elbow
CPT/HCPCS: 73080; 73090; 73110

== ENCOUNTER → 2020-04-07 08:11 | Outpatient (CLI) | payer OTHER, SELFPAY ==
--- NOTE | 2020-04-07 | DI.MG.S_ITS ---
BILATERAL DIGITAL SCREENING MAMMOGRAM 3D/2D WITH CAD: 04/07/2020 CLINICAL: Routine screening. Family history of breast cancer. Comparison is made to exams dated: 03/07/2019 mammogram, 03/04/2018 mammogram, and 02/18/2016 mammogram - [facility]. The tissue of both breasts is extremely dense, which lowers the sensitivity of mammography. Current study was also evaluated with a Computer Aided Detection (CAD) system. No significant masses, calcifications, or other findings are seen in either breast. There has been no significant interval change. IMPRESSION: NEGATIVE There is no mammographic evidence of malignancy. A 1 year screening mammogram is recommended. This exam was interpreted at Station ID: [id number]. NOTE: For mammograms, a report in lay terms will be sent to the patient. Approximately 15% of breast malignancies will not be visualized mammographically. In the management of a palpable breast mass, a negative mammogram must not discourage biopsy of a clinically suspicious lesion. Electronically Signed By: Jonna duran/francia:04/07/2020 09:16:37 letter sent: Normal Exam ACR BI-RADS Category 1: Negative 3341F
== END ==
PROVIDERS: Family Provider Family Medicine; PCP Family Medicine; Referring Provider Family Medicine; Visit Provider Family Medicine
DX: Z12.31 Encounter for screening mammogram for malignant neoplasm of breast (principal); Z80.3 Family history of malignant neoplasm of breast
CPT/HCPCS: 77063; 77067

== ENCOUNTER → 2021-04-25 08:18 | Outpatient (CLI) | payer OTHER, SELFPAY ==
--- NOTE | 2021-04-25 | DI.MG.S_ITS ---
BILATERAL DIGITAL SCREENING MAMMOGRAM 3D/2D WITH CAD: 04/25/2021 CLINICAL: Routine screening. Family history of breast cancer. Comparison is made to exams dated: 04/07/2020 mammogram, 03/07/2019 mammogram, and 03/04/2018 mammogram - [facility]. The tissue of both breasts is heterogeneously dense. This may lower the sensitivity of mammography. Current study was also evaluated with a Computer Aided Detection (CAD) system. No significant masses, calcifications, or other findings are seen in either breast. There has been no significant interval change. IMPRESSION: NEGATIVE There is no mammographic evidence of malignancy. A 1 year screening mammogram is recommended. This exam was interpreted at Station ID: [id number]. NOTE: For mammograms, a report in lay terms will be sent to the patient. Approximately 15% of breast malignancies will not be visualized mammographically. In the management of a palpable breast mass, a negative mammogram must not discourage biopsy of a clinically suspicious lesion. Electronically Signed By: Maulik wolfe/francia:04/25/2021 09:55:13 letter sent: Normal Exam ACR BI-RADS Category 1: Negative 3341F
== END ==
PROVIDERS: Family Provider Family Medicine; PCP Family Medicine; Referring Provider Family Medicine; Visit Provider Family Medicine
DX: Z12.31 Encounter for screening mammogram for malignant neoplasm of breast (principal); Z80.3 Family history of malignant neoplasm of breast
CPT/HCPCS: 77063; 77067

== ENCOUNTER → 2021-07-07 11:47 | Outpatient (CLI) | payer OTHER, SELFPAY ==
[2021-07-07 12:39] LABS: Add Manual Diff / Slide Review NO; Basophils Absolute Auto 0 /uL (0-100); Basophils Percent Auto 0.9 % (0-2); Eosinophils Absolute Auto 100 /uL (0-450); Eosinophils Percent Auto 2.4 % (2-4); Hematocrit 35.9 % (36-46); Lymphocytes Absolute Auto 1600 /uL (1100-4500); Mean Corpuscular HGB Conc 33.3 % (30-36); Mean Corpuscular Hemoglobin 29.8 PG (26-34); Mean Corpuscular Volume 89.3 fL (80-100); Monocytes Absolute Auto 300 /uL (0-900); Monocytes Percent Auto 7.4 % (3-14); Neutrophils Absolute Auto 2500 /uL (1500-7000); Neutrophils Percent Auto 55.3 % (50-75); Platelet Count 196 X10^3/uL (150-400); Red Blood Cell Count 4.02 X10^6/uL (4.0-5.2); Red Cell Distribution Width 13.3 % (11.6-14.8); White Blood Cell Count 4.6 X10^3/uL (4.5-11.0)
[2021-07-07 12:48] LABS: Alanine Aminotransferase 11 IU/L (<35); Albumin 4.7 g/dL (3.5-5.0); Albumin Globulin Ratio 1.5 (1.0-2.8); Alkaline Phosphatase 58 U/L (38-126); Aspartate Aminotransferase 23 IU/L (14-36); BUN Creatinine Ratio 17.8 (6-22); Bilirubin Total 0.9 mg/dL (0.2-1.3); Blood Urea Nitrogen 13 mg/dL (7-17); Calcium 9.2 mg/dL (8.4-10.2); Carbon Dioxide 26 mmol/L (22-32); Chloride 107 mmol/L (98-107); Cholesterol 238 mg/dL (140-199); Estimated Glomerular Filt Rate > 60.0 mL/min (>60); Globulin 3.2 g/dL (1.7-4.1); Glucose 113 mg/dL (70-100); HDL Cholesterol 69 mg/dL (40-60); HEMOLYSIS < 15 (0-50); LDL Cholesterol Calculated 157 mg/dL (<100); Potassium 4.9 mmol/L (3.4-5.1); Sodium 139 mmol/L (137-145); Total Protein 7.9 g/dL (6.3-8.2); Triglycerides 62 mg/dL (35-150)
[2021-07-07 13:41] LABS: TSH w/ Reflex to FT4 1.05 uIU/mL (0.47-4.68)
== END ==
PROVIDERS: Family Provider Family Medicine; PCP Family Medicine; Referring Provider Family Medicine; Visit Provider Family Medicine
DX: R53.83 Other fatigue (principal); L65.9 Nonscarring hair loss, unspecified
CPT/HCPCS: 36415; 80053; 80061; 84443; 85025

== ENCOUNTER → 2022-05-11 07:31 | Outpatient (CLI) | payer OTHER, SELFPAY ==
--- NOTE | 2022-05-11 | DI.MG.S_ITS ---
BILATERAL DIGITAL SCREENING MAMMOGRAM 3D/2D WITH CAD: 05/11/2022 CLINICAL: Routine screening. Family history of breast cancer. Comparison is made to exams dated: 04/25/2021 mammogram, 04/07/2020 mammogram, and 03/07/2019 mammogram - [facility]. The tissue of both breasts is heterogeneously dense. This may lower the sensitivity of mammography. Current study was also evaluated with a Computer Aided Detection (CAD) system. No significant masses, calcifications, or other findings are seen in either breast. There has been no significant interval change. IMPRESSION: NEGATIVE There is no mammographic evidence of malignancy. A 1 year screening mammogram is recommended. Based on Tyrer-Cuzick model (a risk assessment model), the patient's lifetime risk is 29.1% and her 10 year risk is 6.8%. If a patient has an elevated risk, a more comprehensive evaluation should be considered and/or a referral to a genetic counselor. The [place] [employer], [employer], and NCCN Guidelines advise the consideration of Breast MRI as an adjunct to screening mammography in patients whose Lifetime risk to develop breast cancer is 20% or higher. This exam was interpreted at Station ID: [id number]. NOTE: For mammograms, a report in lay terms will be sent to the patient. Approximately 15% of breast malignancies will not be visualized mammographically. In the management of a palpable breast mass, a negative mammogram must not discourage biopsy of a clinically suspicious lesion. Electronically Signed By: Tierra dudley/francia:05/11/2022 11:55:20 letter sent: Normal Exam ACR BI-RADS Category 1: Negative 3341F
== END ==
PROVIDERS: Family Provider Family Medicine; PCP Family Medicine; Referring Provider Family Medicine; Visit Provider Family Medicine
DX: Z12.31 Encounter for screening mammogram for malignant neoplasm of breast (principal); Z80.3 Family history of malignant neoplasm of breast
CPT/HCPCS: 77063; 77067

== ENCOUNTER → 2023-02-09 09:34 | Outpatient (CLI) | payer OTHER, SELFPAY ==
--- NOTE | 2023-02-09 09:37 | DI.RAD.S_ITS ---
PROCEDURE: XR KNEE RT 3V INDICATIONS: right knee pain TECHNIQUE: 3 views of the knee were acquired. COMPARISON: None. FINDINGS: Bones: No fractures or dislocations. No suspicious bony lesions. Moderate tricompartmental arthritic change. Periarticular osteophytes. No erosions. Soft tissues: No joint effusion. No suspicious soft tissue calcifications. IMPRESSION: Moderate tricompartmental arthritic changes. Dictated by: Beth Guajardo M.D. on 02/09/2023 at 14:40 Approved by: Beth Guajardo M.D. on 02/09/2023 at 14:42
== END ==
PROVIDERS: Family Provider Family Medicine; PCP Family Medicine; Referring Provider Family Medicine; Visit Provider Family Medicine
DX: M25.561 Pain in right knee (principal)
CPT/HCPCS: 73562

== ENCOUNTER → 2023-02-22 15:17 | Outpatient (CLI) | payer OTHER, SELFPAY ==
--- NOTE | 2023-02-22 15:19 | DI.MRI.S_ITS ---
PROCEDURE: MR KNEE RT WO CON INDICATIONS: right knee pain with locking and loss of range of motion TECHNIQUE: Noncontrast sagittal PD fast spin echo and T2 fast spin echo with fat saturation, sagittal 3-D FLASH with fat saturation; coronal T1 spin echo and PD fast spin echo with fat saturation, and axial PD fast spin echo with fat saturation through the knee. COMPARISON: [facility], MR, KNEE WITHOUT CONTRAST, 11/26/2017, 7:58. [facility], CR, XR KNEE ARTHRITIC SERIES RT, 11/28/2017, 8:59. FINDINGS: Image quality: Degraded by motion artifact and patient positioning factors. Menisci: There is linear oblique high T2 signal intensity traversing the inner, middle, and peripheral thirds of the anterior horn medial meniscus, demonstrating inferior articular surface extension, as before. Medial extrusion of the medial meniscus. There is new radial tearing of the posterior horn medial meniscus. Lateral meniscus is grossly intact. Cruciate ligaments: The anterior and posterior cruciate ligaments appear intact. Medial structures: The medial collateral ligament appears intact. Small amount of fluid deep to the medial collateral ligament. Visualized portions of the pes anserinus tendons appear normal. No small amount of medial bursal fluid. Lateral structures: The lateral collateral ligament, long and short heads of the biceps femoris tendon appear intact. The popliteus tendon appears normal. Iliotibial band appears normal. Anterior structures: The quadriceps and patellar tendons appear intact. Patellar alignment is normal. No femoral trochlear dysplasia or ventral trochlear prominence. No edema in the infrapatellar fat pad. Bones and cartilage: No bone marrow contusions or fractures. Mild tricompartmental periarticular osteophyte formation. Severe articular cartilage loss diffusely overlies the weight-bearing aspects of the medial femoral condyle and medial tibial plateau. Moderate articular cartilage loss overlies the medial and lateral patellar facets. Superimposed high-grade articular cartilage loss overlies the patellar apex and adjacent aspect of the lateral patellar facet. Joint space: There is a moderate knee joint effusion. No Alicea's cyst. Normal appearing synovial plicae are incidentally noted. IMPRESSION: 1. Tricompartmental osteoarthritis with associated articular cartilage loss. 2. Progressive complex tearing of medial meniscus. 3. Knee joint effusion. 4. Medial bursitis. 5. Medial collateral ligament bursitis. Dictated by: Estrada Perez M.D. on 02/23/2023 at 9:35 Approved by: Estrada Perez M.D. on 02/23/2023 at 9:44
== END ==
PROVIDERS: Family Provider Family Medicine; PCP Family Medicine; Referring Provider Family Medicine; Visit Provider Family Medicine
DX: S83.231A Complex tear of medial meniscus, current injury, right knee, initial encounter (principal); M17.11 Unilateral primary osteoarthritis, right knee; M71.561 Other bursitis, not elsewhere classified, right knee; M25.461 Effusion, right knee; M25.561 Pain in right knee; M23.91 Unspecified internal derangement of right knee; M25.669 Stiffness of unspecified knee, not elsewhere classified
CPT/HCPCS: 73721

== ENCOUNTER → 2023-06-14 07:15 | Outpatient (CLI) | payer OTHER, SELFPAY ==
--- NOTE | 2023-06-14 | DI.MG.S_ITS ---
BILATERAL DIGITAL SCREENING MAMMOGRAM 3D/2D WITH CAD: 06/14/2023 CLINICAL: Routine screening. Family history of breast cancer. Comparison is made to exams dated: 05/11/2022 mammogram, 04/25/2021 mammogram, and 04/07/2020 mammogram - [facility]. Both breasts are heterogeneously dense, which may obscure small masses (category c / 51-75% glandular tissue). Current study was also evaluated with a Computer Aided Detection (CAD) system. No significant masses, calcifications, or other findings are seen in either breast. There has been no significant interval change. IMPRESSION: NEGATIVE There is no mammographic evidence of malignancy. A 1 year screening mammogram is recommended. Based on Tyrer-Cuzick model (a risk assessment model), the patient's lifetime risk is 28.9% and her 10 year risk is 7.1%. If a patient has an elevated risk, a more comprehensive evaluation should be considered and/or a referral to a genetic counselor. The [place] [employer], [employer], and NCCN Guidelines advise the consideration of Breast MRI as an adjunct to screening mammography in patients whose Lifetime risk to develop breast cancer is 20% or higher. This exam was interpreted at Station ID: [id number]. NOTE: For mammograms, a report in lay terms will be sent to the patient. Approximately 15% of breast malignancies will not be visualized mammographically. In the management of a palpable breast mass, a negative mammogram must not discourage biopsy of a clinically suspicious lesion. Electronically Signed By: Tay neely/francia:06/15/2023 07:28:27 letter sent: Normal Exam ACR BI-RADS Category 1: Negative 3341F
== END ==
PROVIDERS: Family Provider Family Medicine; PCP Family Medicine; Referring Provider Family Medicine; Visit Provider Family Medicine
DX: Z12.31 Encounter for screening mammogram for malignant neoplasm of breast (principal); Z80.3 Family history of malignant neoplasm of breast
CPT/HCPCS: 77063; 77067

== ENCOUNTER → 2024-06-26 15:49 | Outpatient (CLI) | payer OTHER, SELFPAY ==
--- NOTE | 2024-06-26 15:50 | DI.MG.S_ITS ---
BILATERAL DIGITAL SCREENING MAMMOGRAM 3D/2D WITH CAD: 06/26/2024 CLINICAL: Routine screening. Family history of breast cancer. Comparison is made to exams dated: 06/14/2023 mammogram, 05/11/2022 mammogram, and 04/25/2021 mammogram - [facility]. Both breasts are heterogeneously dense, which may obscure small masses (category c / 51-75% glandular tissue). Current study was also evaluated with a Computer Aided Detection (CAD) system. No significant masses, calcifications, or other findings are seen in either breast. There has been no significant interval change. IMPRESSION: NEGATIVE There is no mammographic evidence of malignancy. A 1 year screening mammogram is recommended. Based on Tyrer-Cuzick model (a risk assessment model), the patient's lifetime risk is 28.7% and her 10 year risk is 7.3%. If a patient has an elevated risk, a more comprehensive evaluation should be considered and/or a referral to a genetic counselor. The [place], [employer], and NCCN Guidelines advise the consideration of Breast MRI as an adjunct to screening mammography in patients whose Lifetime risk to develop breast cancer is 20% or higher. This exam was interpreted at Station ID: [id number]. NOTE: For mammograms, a report in lay terms will be sent to the patient. Approximately 15% of breast malignancies will not be visualized mammographically. In the management of a palpable breast mass, a negative mammogram must not discourage biopsy of a clinically suspicious lesion. Electronically Signed By: Tay neely/francia:06/27/2024 07:37:01 letter sent: Normal Exam ACR BI-RADS Category 1: Negative 3341F
== END ==
LOC: MAMMO 15:49
PROVIDERS: Family Provider Family Medicine; PCP Family Medicine; Referring Provider Family Medicine; Visit Provider Family Medicine
DX: Z12.31 Encounter for screening mammogram for malignant neoplasm of breast (principal); Z80.3 Family history of malignant neoplasm of breast; R92.333 Mammographic heterogeneous density, bilateral breasts
CPT/HCPCS: 77063; 77067